=== PATIENT | female | born 1995 | race Caucasian/White ===

== ENCOUNTER → 2018-09-20 09:18 | Outpatient (CLI) | payer OTHER, SELFPAY ==
[2018-09-20 08:20] VITALS: BMI 42.7
[2018-09-20 10:47] LABS: Absolute Lymphocyte Count 2.46 X10^3/ul (0.83-4.51); Basophil# 0.04 X10^3/uL; Basophil% 0.4 % (0-1); Eosinophil# 0.11 X10^3/uL; Eosinophils% 1.1 % (0-5); Hemoglobin 14.2 g/dl (12.0-15.0); Lymphocyte # 2.46 X10^3/ul (4.0); Lymphocyte % 23.5 % (19-41); Mean Corp Hgb Conc 32.3 g/gl (32-36); Mean Corpuscular Hgb 28.1 pg (27.0-32.0); Mean Corpuscular Volume 87.1 fL (81-99); Mean Platelet Vol. 11.1 fl (6.2-12.0); Monocyte# 0.84 X10^3/uL; Neutrophil # 6.98 X10^3/uL (2.7-7.7); Neutrophil % 66.8 % (47-70); Platelet Count 262 K/mm3 (150-450); RBC Distribution Width CV 13.9 % (11.6-14.6); RBC Distribution Width SD 44.4 fl (35.1-43.9); Red Blood Count 5.05 M/mm3 (4.2-5.4); White Blood Count 10.5 K/mm3 (4.4-11.0)
[2018-09-20 10:48] LABS: POSITIVE COUNT NO; POSITIVE DIFFERENTIAL NO; POSITIVE MORPHOLOGY NO
[2018-09-20 11:53] LABS: HIV - WCH Non-Reactive (Nonreactive); Rubella IgG 12.7 IU/mL
[2018-09-20 19:01] LABS: Chlamydia Trachomatis by PCR POSITIVE (Negative)
[2018-09-20 19:02] LABS: Neisserai gonorrhoeae by PCR Negative (Negative); Probe Check PASS; Sample Adequacy Control PASS; Specimen Processing Control PASS
[2018-09-21 12:16] LABS: HEPATITIS B SURFACE AG Negative (Negative)
[2018-09-22 03:11] LABS: Rapid Plasmin Reagin (RPR) NONREACTIVE (NONREACTIVE)
[2018-09-24 09:39] LABS: HPV Reflexed? NOT INDICATED
== END ==
PROVIDERS: Family Provider Family Medicine; PCP Family Medicine; Referring Provider Obstetrics & Gynecology; Visit Provider Obstetrics & Gynecology
DX: Z34.90 Encounter for supervision of normal pregnancy, unspecified, unspecified trimester (principal); Z12.4 Encounter for screening for malignant neoplasm of cervix
CPT/HCPCS: 36415; 85025; 86592; 86703; 86762; 86850; 86900; 87086; 87088; 87186; 87340; 87491; 87591; 87624; 88175; G0145

== ENCOUNTER → 2018-11-15 09:04 | Outpatient (CLI) | payer MEDICAID, SELFPAY ==
[2018-10-20 15:33] VITALS: BMI 42.7
[2018-11-15 10:50] LABS: Glucose Challenge Gest 1H 50g 124 mg/dL (70-140)
== END ==
PROVIDERS: Family Provider Family Medicine; PCP Family Medicine; Referring Provider Obstetrics & Gynecology; Visit Provider Obstetrics & Gynecology
DX: Z34.90 Encounter for supervision of normal pregnancy, unspecified, unspecified trimester (principal)
CPT/HCPCS: 36415; 82950

== ENCOUNTER → 2018-12-13 14:07 | Outpatient (CLI) | payer OTHER, MEDICAID, SELFPAY ==
[2018-12-13 11:42] VITALS: BMI 43.2
--- NOTE | 2018-12-13 14:21 | US_ITS ---
STUDY: SECOND AND THIRD TRIMESTER OBSTETRICAL ULTRASOUND REASON FOR EXAM: Female, 23 years old. Routine survey. LMP: 07/22/2018 TECHNIQUE: Transabdominal TECHNICAL QUALITY: Adequate. PRIOR ULTRASOUND: None. FINDINGS: There is a single intrauterine fetus. The fetus is moving throughout the exam. There is demonstrated cardiac activity with a heart rate of 157 bpm. There is a normal amniotic fluid volume. The largest amniotic fluid pocket measures 4.0 cm. The placenta is posterior in location and is not low lying. There are Grade 0 placental changes. The cervix measures 3.06 cm in length. The adnexal regions are not visualized. BIOMETRY: BPD: 4.35 cm: 19 weeks, 2 days HC: 16.28 cm: 19 weeks, 1 days AC: 14.96 cm: 20 weeks, 2 days FL: 3.29 cm: 20 weeks, 2 days age by current US: 19 weeks, 6 days. LEOBARDO by current US: 05/03/2019. Estimated weight: 331 grams, +/- 48 grams, 21 %. age by prior US: 20 weeks, 4 days. LEOBARDO by prior US: 04/28/2019. Age by LMP: 20 weeks, 4 days. LEOBARDO by LMP: 04/28/2019. ANATOMY: Gender: Female Cranium: Normal lateral ventricles. Normal choroid plexus. Normal cerebellum. Normal cisterna magna. Normal face, nose and lips. Chest: Normal 4-chamber heart. Abdomen/Pelvis: Normal diaphragm. Normal stomach. Normal abdominal wall. Normal cord insertion. Normal 3 vessel cord. Normal kidneys. Normal bladder. Spine: Normal cervical spine. Normal thoracic spine. Normal lumbar spine. Normal sacrum. Extremities: Normal bilateral upper extremities. Normal bilateral lower extremities. US/OB Anatomy Scan IMPRESSION: Single live intrauterine at 19 weeks, 6 days by current ultrasound with LEOBARDO of 05/03/2019. Heart rate at 157 bpm. No suspicious sonographic findings. Normal growth noted since the previous study. Electronically Signed: Diego Chapa MD at 18:32 EDT , Service support ,
== END ==
PROVIDERS: Family Provider Family Medicine; PCP Family Medicine; Referring Provider Obstetrics & Gynecology; Visit Provider Obstetrics & Gynecology
DX: Z34.90 Encounter for supervision of normal pregnancy, unspecified, unspecified trimester (principal)
CPT/HCPCS: 76805

== ENCOUNTER → 2019-02-07 11:13 | Outpatient (CLI) | payer OTHER, MEDICAID, SELFPAY ==
[2019-02-07 10:52] VITALS: BMI 42.7
[2019-02-07 12:44] LABS: Absolute Neutrophil Count 8.8 X10^3/uL (2.0-7.7); Basophil# 0.02 X10^3/uL; Basophil% 0.2 % (0-1); Eosinophil# 0.07 X10^3/uL; Eosinophils% 0.6 % (0-5); Hematocrit 38.2 % (37-47); Hemoglobin 12.5 g/dL (12.0-15.0); Mean Corp Hgb Conc 32.7 g/dL (32-36); Mean Corpuscular Hgb 29.1 pg (27.0-32.0); Mean Corpuscular Volume 88.8 fL (81-99); Mean Platelet Vol. 10.9 fl (6.2-12.0); Monocyte# 0.61 X10^3/uL; Monocyte% 5.4 % (0-10); NRBC Flagged by Analyzer 0 % (0-5); Neutrophil # 8.84 X10^3/uL (2.7-7.7); Neutrophil % 78.2 % (47-70); Platelet Count 224 K/mm3 (150-450); RBC Distribution Width CV 13.5 % (11.6-14.6); RBC Distribution Width SD 43.8 fl (35.1-43.9); White Blood Count 11.3 K/mm3 (4.4-11.0)
[2019-02-07 12:46] LABS: Glucose Challenge Gest 1H 50g 126 mg/dL (70-140)
== END ==
PROVIDERS: Family Provider Family Medicine; PCP Family Medicine; Referring Provider Nurse Practitioner Women's Health; Visit Provider Nurse Practitioner Women's Health
DX: Z34.90 Encounter for supervision of normal pregnancy, unspecified, unspecified trimester (principal)
CPT/HCPCS: 36415; 82950; 85025; 87086; 87088

== ENCOUNTER → 2019-03-07 13:38 | Outpatient (CLI) | payer OTHER, MEDICAID, SELFPAY ==
[2019-02-21 09:34] VITALS: BMI 45.3
--- NOTE | 2019-03-07 13:40 | US_ITS ---
STUDY: SECOND AND THIRD TRIMESTER OBSTETRICAL ULTRASOUND - LIMITED REASON FOR EXAM: Female, 24 years old. Routine survey. LMP: July 22, 2018. PRIOR ULTRASOUND: Comparison is made with prior study dated December 13, 2018. TECHNIQUE: Transabdominal TECHNICAL QUALITY: Adequate. FINDINGS: There is a single intrauterine fetus. The fetus is in a cephalic presentation. There is demonstrated cardiac activity with a heart rate of 147 bpm. There is a normal amniotic fluid volume. The largest amniotic fluid pocket measures 3.9 x 4.3 cm. The amniotic fluid index (AZAEL) is 14.7 cm. The placenta is posterior in location and is not low lying. There are Grade 1 placental changes. The cervix measures 4.9 cm in length. BIOMETRY: BPD: 7.93 cm: 31 weeks, 6 days HC: 29.42 cm: 30 weeks, 4 days AC: 28.42 cm: 32 weeks, 4 days FL: 6.22 cm: 32 weeks, 2 days Age by LMP: 32 weeks, 4 days. LEOBARDO by LMP: April 28, 2019. age by prior US: 31 weeks, 6 days. LEOBARDO by prior US: May 03, 2019. age by current US: 32 weeks, 3 days. LEOBARDO by current US: April 29, 2019. Estimated weight: 1951 grams, +/- 25 grams, 32 percentile. US/OB Limited With Biometrics IMPRESSION: Single live intrauterine gestation with a mean gestational age of 31 weeks and 6 days. Measurements obtained today fall within normal expected range. Electronically Signed: Edwardo Chávez, at 13:41 EDT , Service support ,
== END ==
PROVIDERS: Family Provider Family Medicine; PCP Family Medicine; Referring Provider Obstetrics & Gynecology; Visit Provider Obstetrics & Gynecology
DX: O99.211 Obesity complicating pregnancy, first trimester (principal); Z3A.32 32 weeks gestation of pregnancy
CPT/HCPCS: 76816

== ENCOUNTER → 2019-04-04 11:30 | Outpatient (CLI) | payer OTHER, MEDICAID, SELFPAY ==
[2019-02-21 09:34] VITALS: BMI 45.3
[2019-04-04 11:04] VITALS: BMI 45.3
--- NOTE | 2019-04-04 11:33 | US_ITS ---
STUDY: SECOND AND THIRD TRIMESTER OBSTETRICAL ULTRASOUND REASON FOR EXAM: Female, 24 years old. growth LMP: TECHNIQUE: Transabdominal TECHNICAL QUALITY: Adequate. PRIOR ULTRASOUND: March 07, 2019 FINDINGS: There is a single intrauterine fetus. The fetus is in a cephalic presentation. There is demonstrated cardiac activity with a heart rate of 130 bpm. There is a normal amniotic fluid volume. The largest amniotic fluid pocket measures 3.7 cm. The amniotic fluid index (AZAEL) is 12.8 cm. The placenta is posterior and fundal There are Grade 2 placental changes. The cervix was not visualized. The bilateral adnexal regions are nonvisualized. BIOMETRY: BPD: 8.9 cm: 36 weeks, 0 days HC: 32.1 cm: 36 weeks, 2 days AC: 32.2 cm: 36 weeks, 1 days FL: 7.1 cm : 36 weeks, 2 days CI: 0.8 FL/BPD: 0.8 FL/HC: FL/AC: 0.22 HC/AC: 1.0 age by current US: 36 weeks, 2 days. LEOBARDO by current US: April 30, 2019. Estimated weight: 2856 grams, +/- 417 grams, 41 %. age by prior US: 36 weeks, 3 days. LEOBARDO by prior US: April 29, 2019. Age by LMP: 36 weeks, 4 days. LEOBARDO by LMP: April 28, 2019. ANATOMY: Not studied at this time. US/OB Limited With Biometrics IMPRESSION: Viable intrauterine gestation approximately 36-37 weeks gestational age No acute abnormality Electronically Signed: Layo Sanders MD at 21:38 EDT , Service support ,
[2019-04-04 17:22] LABS: Chlamydia Trachomatis by PCR Negative (Negative); Neisserai gonorrhoeae by PCR Negative (Negative); Probe Check PASS; Sample Adequacy Control PASS; Specimen Processing Control PASS
== END ==
PROVIDERS: Family Provider Family Medicine; PCP Family Medicine; Referring Provider Obstetrics & Gynecology; Visit Provider Obstetrics & Gynecology
DX: O99.213 Obesity complicating pregnancy, third trimester (principal); O98.313 Other infections with a predominantly sexual mode of transmission complicating pregnancy, third trimester; Z3A.36 36 weeks gestation of pregnancy
CPT/HCPCS: 76816; 87081; 87491; 87591

== ENCOUNTER 2019-04-17 13:47 | Outpatient (CLI) | payer OTHER, MEDICAID, SELFPAY ==
[2019-04-17 13:22] VITALS: BMI 49.2
[2019-04-17 14:12] LABS: ROM Internal Control Test YES-OK TO RESULT pt. (Internal QC); ROM Patient Test Negative (Negative); Record Kit Lot#, ROM+ J8255
[2019-04-17 14:38] VITALS: BMI 49.6
[2019-04-17 15:02] LABS: Protein:Creat Ratio 169 mg/g CRE (0-200)
[2019-04-17 15:10] LABS: Hematocrit 36.1 % (37-47); Hemoglobin 11.9 g/dL (12.0-15.0); Mean Corpuscular Hgb 28.7 pg (27.0-32.0); Platelet Count 226 K/mm3 (150-450); RBC Distribution Width CV 13.8 % (11.6-14.6); RBC Distribution Width SD 43.2 fl (35.1-43.9); Red Blood Count 4.15 M/mm3 (4.2-5.4); White Blood Count 12.4 K/mm3 (4.4-11.0)
[2019-04-17 15:21] LABS: International Normalized Ratio 1.1; Prothrombin Time (Protime)PT. 13.8 SECONDS (11.7-14.9)
[2019-04-17 15:22] LABS: AST(SGOT) 13 U/L (15-37); Alanine Aminotransfer ALT/SGPT 15 U/L (13-56); Creatinine, Serum 0.62 mg/dL (0.55-1.02); EST Glomerular Filtration Rate 125 mL/min (>60); Est Glom Filt Rate - Afr Amer 151 mL/min (>60); Estimated Creatinine Clearance 144.96 ml/min; Partial Thromboplast Time 26.7 Seconds (24.1-36.2); Uric Acid 4.6 mg/dL (2.6-6.0)
--- NOTE | 2019-04-18 05:30 | OB.TRI.PN ---
Progress Notes Date of Service: 04/17/19 Progress Note: Patient presents for triage evaluation secondary to elevated blood pressure in the office FHT: 130 Moderate variability reactive no decelerations category I tracing [place]: no Contractions Assessment and plan: Elevated blood pressures in office, repeat all within normal limits and negative preeclampsia panel reactive NST, reassuring maternal and status patient discharged to home to follow-up as scheduled next week reviewed preeclampsia precautions. See problem list details for additional plan information. Laboratory Studies: Laboratory Tests 04/17/19 04/17/19 04/17/19 Range/Units 14:50 14:50 14:50 WBC 12.4 H (4.4-11.0) K/mm3 RBC 4.15 L (4.2-5.4) M/mm3 Hgb 11.9 L (12.0-15.0) g/dL Hct 36.1 L (37-47) % MCV 87.0 (81-99) fL MCH 28.7 (27.0-32.0) pg MCHC 33.0 (32-36) g/dL RDW Std Deviation 43.2 (35.1-43.9) fl RDW Coeff of Luisa 13.8 (11.6-14.6) % Plt Count 226 (150-450) K/mm3 MPV 12.0 (6.2-12.0) fl PT 13.8 (11.7-14.9) SECONDS INR 1.1 APTT 26.7 (24.1-36.2) Seconds Creatinine 0.62 (0.55-1.02) mg/dL Estim Creat Clear Calc 144.96 ml/min Est GFR (MDRD) Af Amer 151 (>60) mL/min Est GFR (MDRD) Non-Af 125 (>60) mL/min Uric Acid 4.6 (2.6-6.0) mg/dL AST 13 L (15-37) U/L ALT 15 (13-56) U/L U Random Total Protein (<11.9) mg/dL Urine Creatinine (NO RANGE EST.) mg/dL Protein/Creatinin Ratio (0-200) mg/g CRE Vag Amniotic Fld Detect (Negative) 04/17/19 04/17/19 Range/Units 13:50 13:25 WBC (4.4-11.0) K/mm3 RBC (4.2-5.4) M/mm3 Hgb (12.0-15.0) g/dL Hct (37-47) % MCV (81-99) fL MCH (27.0-32.0) pg MCHC (32-36) g/dL RDW Std Deviation (35.1-43.9) fl RDW Coeff of Luisa (11.6-14.6) % Plt Count (150-450) K/mm3 MPV (6.2-12.0) fl PT (11.7-14.9) SECONDS INR APTT (24.1-36.2) Seconds Creatinine (0.55-1.02) mg/dL Estim Creat Clear Calc ml/min Est GFR (MDRD) Af Amer (>60) mL/min Est GFR (MDRD) Non-Af (>60) mL/min Uric Acid (2.6-6.0) mg/dL AST (15-37) U/L ALT (13-56) U/L U Random Total Protein 40.0 H (<11.9) mg/dL Urine Creatinine 236.00 (NO RANGE EST.) mg/dL Protein/Creatinin Ratio 169 (0-200) mg/g CRE Vag Amniotic Fld Detect Negative (Negative) - Problem List (1) Elevated blood pressure affecting in third trimester, antepartum Status: Acute Multi Select Codes - Urinary/Genital Urinary/Genital CPT Codes: 93592-39 non-stress test Interp
== END 2019-04-17 16:00 | disposition home or self-care (01) ==
LOC: LABSPEC 13:50 → WPOUT 14:23 → WP 14:27
PROVIDERS: Nurse Practitioner Women's Health; Family Provider Family Medicine; PCP Family Medicine; Referring Provider Obstetrics & Gynecology; Visit Provider Obstetrics & Gynecology
DX: O26.893 Other specified pregnancy related conditions, third trimester (principal); Z3A.00 Weeks of gestation of pregnancy not specified; R03.0 Elevated blood-pressure reading, without diagnosis of hypertension
CPT/HCPCS: 36415; 59025; 59050; 82565; 82570; 84112; 84156; 84450; 84460; 84550; 85027; 85610; 85730; 99218; G0378

== ENCOUNTER 2019-04-25 09:35 | Inpatient (IN) | payer OTHER, MEDICAID, SELFPAY ==
[2019-04-25 09:21] VITALS: BMI 49.6
[2019-04-25 10:00] VITALS: BMI 49.1
[2019-04-25 10:09] LABS: Protein, Urine (Random) 48.8 mg/dL (<11.9); Protein:Creat Ratio 400 mg/g CRE (0-200)
[2019-04-25] MEDS: Lactated Ringers 1,000 ML 50 ML IV (10:17)
[2019-04-25 10:30] LABS: Hematocrit 36.5 % (37-47); Hemoglobin 12.2 g/dL (12.0-15.0); Mean Corp Hgb Conc 33.4 g/dL (32-36); Mean Corpuscular Hgb 29.2 pg (27.0-32.0); Mean Corpuscular Volume 87.3 fL (81-99); Mean Platelet Vol. 11.5 fl (6.2-12.0); POSITIVE MORPHOLOGY YES; Platelet Count 207 K/mm3 (150-450); RBC Distribution Width CV 13.9 % (11.6-14.6); RBC Distribution Width SD 44.5 fl (35.1-43.9); Red Blood Count 4.18 M/mm3 (4.2-5.4); White Blood Count 10.3 K/mm3 (4.4-11.0)
[2019-04-25 10:32] LABS: Scan Indicated on CBC? Y/N YES- FLAGS NOTED
[2019-04-25 10:45] LABS: AST(SGOT) 12 U/L (15-37); Alanine Aminotransfer ALT/SGPT 12 U/L (13-56); Creatinine, Serum 0.65 mg/dL (0.55-1.02); EST Glomerular Filtration Rate 118 mL/min (>60); Est Glom Filt Rate - Afr Amer 143 mL/min (>60); Estimated Creatinine Clearance 138.27 ml/min; Uric Acid 4.7 mg/dL (2.6-6.0)
[2019-04-25 10:49] LABS: International Normalized Ratio 1.1; Prothrombin Time (Protime)PT. 13.8 SECONDS (11.7-14.9)
[2019-04-25 10:50] LABS: Partial Thromboplast Time 27.1 Seconds (24.1-36.2)
[2019-04-25] MEDS: Oxytocin 30 units/NS 500 ml 30 UNITS/500 ML IV.SOLN IV (11:33)
[2019-04-25] MEDS: 0.9% Normal Saline 100 ML IV.SOLN. IY (13:19)
[2019-04-25] MEDS: Ondansetron 4 MG/2 ML Vial IV (17:01)
[2019-04-25] MEDS: Nalbuphine 10 MG/ML Ampul IV (17:57)
--- NOTE | 2019-04-25 22:01 | HP.PCM_ITS ---
- Problem List (1) Preeclampsia Status: Acute (2) Chlamydia infection affecting Status: Acute Qualifiers: Comment: Tx 09/21/18; Rpt 4 week/neg; 36wk neg. (3) Obesity affecting Status: Acute Qualifiers: Comment: 1 tm glucola, discuss healthy weight gain, nutrition consult (4) Status: Acute Qualifiers: Comment: genetic, NTD, and carrier screening declined. nl anatomy scan. (5) Supervision of normal Status: Acute Qualifiers: Comment: PRR Leobardo 04/28/19 girl Xara boyfriend Olu (Angel) (6) UTI in Status: Acute Qualifiers: Comment: 09/21/18 [place] ampicillin. Rpt culture next visit History and Physical Date of Admission: 04/25/19 Intake Vital Signs 04/25/19 Body Mass Index (BMI) 49.6 04/25/19 Height 5 ft 9 in 04/25/19 Weight: 335 lb 04/25/19 Body Mass Index (BMI) 49.4 04/25/19 Blood Pressure 154/92 H Intake Visit Reasons: 39 WEEK OB/NST Chief Complaint: est ob,nst Air Quality Consultant Required: No Is patient in pain?: No Allergies No Known Allergies Allergy (Verified 04/25/19 09:08) Medications vitamin#30 30 mg iron-10 mg iron-folic acid 1 mg-omg3 capsule cap PO cap 09/20/18 [History Confirmed 04/25/19] Last Menstral Period: 07/22/18 Zika: Zika virus screening: Negative : No PFSH PFSH Family History Mother Hypertension Heart disease Grandmother Cancer Lymphnode Sister Lupus Rheumatoid arthritis Brother Marfan syndrome Social History (Updated 04/25/19 @ 09:28 by Dimple Trinidad MD) Smoking Status: Never smoker alcohol intake: never substance use type: does not use caffeine: Yes what type of physical activity do you participate in: walking seatbelt use: always do you feel safe at home: Yes additional social history: Single- works at [employer] Pregancy History 1 Elective abortions Hx Para Spontaneous abortions Hx # Term Pregnancies Ectopic pregnancies Hx # Pregnancies Multiple births # of living children HPI 39 WEEK OB/NST: Details: YAZ SAAB is a 24 year old who presents for routine OB visit- she has elevated bps and 2 plus protein so is being sent down to l and d for IOL with pitocin and baker bulb. plan CMP. no LIM BV good fm no regular ctx no vb or lof. OB Visit LEOBARDO Calculator Estimated Delivery Date Method Current WG Current Estimate 04/28/19 LMP (Certain) 39w 4d Expected Delivery Route/Plan Specific Issue/Plans flu vaccine: given tdap vaccine: given rhogam: na LARC form signed: declines labor support person: Olu pain management: epidural if needed cut cord/dad catch: yes : yes PP control planned: [] discussed possible routes of delivery and associated risks: [] special requests: [] Initial Weight: 290 lb Date EGA Weight BP Urine Prot Glucose FHR FuHt Pres Mov CTX Dilation Effaced St Visit Note 10/20/18 12w 6d 294 lb (+4 lb) 140/64 Negative Negative 160 170 no vb cramping 11/15/18 16w 4d 292 lb 8 oz (+2 lb 8 oz) 126/68 Negative Negative 148 Doing well NO Vb, LOF 12/13/18 20w 4d 293 lb (+3 lb) 142/90 Trace Negative 145 no vb lof good fm 01/10/19 24w 4d 302 lb (+12 lb) 116/66 Negative Negative 150 no vb lof good fm no regular ctx 02/07/19 28w 4d 303 lb (+13 lb) 124/70 Negative Negative 138 28 No VB, LOF. Doing well 02/21/19 30w 4d 307 lb (+17 lb) 112/64 Negative Negative 135 30 Active absent no vb lof good fm no regular ctx 03/07/19 32w 4d 307 lb (+17 lb) 120/60 140 33 Active absent NO VB, LOF. NST 03/14/19 33w 4d 309 lb 4 oz (+19 lb 4 oz) 110/62 Negative Negative 145 35 Active absent no vb lof 03/21/19 34w 4d 317 lb (+27 lb) 132/78 138 35 Active absent NST today. 03/28/19 35w 4d 321 lb (+31 lb) 321 lb (+31 lb) 130/76 Trace Negative 135 36 Active absent No VB, LOF. Good FM. NST 04/04/19 36w 4d 329 lb 4 oz (+39 lb 4 oz) 128/68 Negative Negative 140 37 Active absent no vb lof gbs today, co usha edema 04/11/19 37w 4d 334 lb (+44 lb) 130/86 Negative Negative 146 38 Active absent 1.40 -4 No CTX, LOF, VB 04/17/19 38w 3d 333 lb 6 oz (+43 lb 6 oz) 140/84 Trace Negative 158 39 Cephalic Active absent 1.40 -3 Work in for questionable ROM 04/25/19 39w 4d 335 lb (+45 lb) 154/92 150 Visit Notes Visit Date: 04/25/19 ??No visit notes to display Visit Date: 04/17/19 ??Work in for questionable ROM ??Bárbara Sofia NP-C on 04/17/19 Visit Date: 04/11/19 ??No CTX, LOF, VB ??RACHEL Barrios on 04/11/19 Visit Date: 04/04/19 ??no vb lof gbs today, co usha edema ??Dimple Trinidad MD on 04/04/19 Visit Date: 03/28/19 ??No VB, LOF. Good FM. NST ??RACHEL Barrios on 03/28/19 Visit Date: 03/21/19 ??NST today. ??RACHEL Barrios on 03/21/19 Visit Date: 03/14/19 ??no vb lof ??Dimple Trinidad MD on 03/18/19 Visit Date: 03/07/19 ??NO VB, LOF. NST ??RACHEL Barrios on 03/07/19 Visit Date: 02/21/19 ??no vb lof good fm no regular ctx ??Dimple Trinidad MD on 02/21/19 Visit Date: 02/07/19 ??No VB, LOF. Doing well ??RACHEL Barrios on 02/07/19 Visit Date: 01/10/19 ??no vb lof good fm no regular ctx ??Dimple Trinidad MD on 01/10/19 Visit Date: 12/13/18 ??no vb lof good fm ??Dimple Trinidad MD on 12/15/18 Visit Date: 11/15/18 ??Doing well NO Vb, LOF ??RACHEL Barrios on 11/15/18 Visit Date: 10/20/18 ??no vb cramping ??Dimple Trinidad MD on 10/20/18 ACOG First Trimester First Trimester: Desire for , Alcohol, Tobacco Cessation, Illicit/Recreational Drug/Substance Use, Intimate Partner Violence, Barriers to care, Unstable Housing, Communication Barriers, Environmental/Work Hazards, Anticipated Course of Care, Toxoplasmosis Precations, Use of Any medications, Sexual activity, Exercise, Dental Care, Sauna/Hot tub use, Seat Belt use, Childbirth classes/Hospital facilities, , Travel, In dications for US and Screening for Aneuploidy Second Trimester Second Trimester: Signs and Symptoms of Labor, Selecting a care provider, Reproductive Life Planning, Care Planning, Tobacco Cessation, Depression/Anxiety and Intimate Partner Violence Third Trimester Third Trimester: Pain Management Plans, Labor support person(s), Immediate Larc, Movement Monitoring and Feeding Yes ; discussed Trial of Labor after Counseling or discussed Circumcision preference Diagnostics Diagnostics Diagnostics Glucose 1 Hr 50 gm 126 mg/dL (70-140) 02/07/19 Hgb 11.9 g/dL (12.0-15.0) L 04/17/19 Hct 36.1 % (37-47) L 04/17/19 Details: HIV: Urine Culture: Sequential Screen: NIPT Screen: ROS Const Reports system reviewed and no additional complaints, except as docu Card Reports system reviewed and no additional complaints, except as docu Resp Reports system reviewed and no additional complaints, except as docu GI Reports system reviewed and no additional complaints, except as docu, Reports nausea Reports system reviewed and no additional complaints, except as docu Musc Reports system reviewed and no additional complaints, except as docu Exam Const General: cooperative, healthy appearing, comfortable, anxious HENMT Head: normal to inspection Nose: external nose normal Face and sinus: normal facial exam Neck Neck: normal visual inspection, full ROM, no lymphadenopathy Thyroid: thyroid normal Chest Chest palpation & inspection: normal inspection of the chest Resp Effort & Inspection: normal respiratory effort GI Inspection: normal to inspection Palpation: soft, other (gravid uterus) Other: vertex and appropriate size for gestational age Other: Cervical Exam: Extrem General: pedal edema Assessment & Plan Problems 1. Elevated blood pressure affecting in third trimester, antepartum O16.3 2. Urinary tract infection in mother during third trimester of O23.43 3. Obesity affecting in third trimester O99.213 4. 39 weeks gestation of Z3A.39 5. Encounter for supervision of normal first in third trimester Z34.03 6. Chlamydia infection affecting in second trimester O98.812 Plan Patient presents IOL, plan management for , pitocin/AROM after baker bulb. Pain management: minimal intervention desired. GBS negative. Management of any complications: check cmp- no magnesium sulfat unless severe features develop I have reviewed the [facility] and made any clinically relevant updates. Orders Orders: OB NST Today O99.210 POC Urinalysis 2 Dip (Clinic) Today Protein+Creatinine Ratio,Urine Today O12.10, O16.3 Coding Level of Care Code OB Routine Diagnoses Elevated blood pressure affecting in third trimester, antepartum O16.3 Urinary tract infection in mother during third trimester of O23.43 ??Trimester: third trimester Obesity affecting in third trimester O99.213 ??Trimester: third trimester 39 weeks gestation of Z3A.39 ??Weeks of gestation: 39 weeks Encounter for supervision of normal first in third trimester Z34.03 ??Normal : normal first ??Trimester: third trimester Chlamydia infection affecting in second trimester O98.812 ??Trimester: second trimester
--- NOTE | 2019-04-25 22:02 | PN_ITS ---
Progress Note FHT: 130 Moderate variability reactive no decelerations category I tracing [place]: regular Contractions 4 cm -3 wait for AROM pit per protocol, bps nl to mildlly elevated
[2019-04-26] VITALS (10 sets, daily range): BP systolic 121–150; BP diastolic 61–82; PULSE 112–124; RESP 18–20; TEMP 36.8–38.4; O2SAT 95–96
[2019-04-26] MEDS: Lactated Ringers 1,000 ML 50 ML IV (02:14)
[2019-04-26] MEDS: Nalbuphine 10 MG/ML Ampul IV ×2 (04:10→08:33)
[2019-04-26] MEDS: Lactated Ringers 500 ML 999 ML IV (10:07)
[2019-04-26] MEDS: Ondansetron 4 MG/2 ML Vial IV (10:30)
[2019-04-26] MEDS: fentaNYL-bupivacaine (epidural) 100 ML BAG EPIDURAL ×2 (10:53→16:02)
--- NOTE | 2019-04-26 13:06 | PCM.PN.BLA ---
Progress Note FHT: 130 Moderate variability reactive no decelerations category I tracing [place]: regular Contractions still 5 cm but some subtle cervical cahnge. ROM since 7 am- recommend pitocin washout and plan restarting. s/p epidural. bps stable and nl
[2019-04-26] MEDS: Lactated Ringers 1,000 ML 200 ML IV (13:33)
[2019-04-26] MEDS: Sodium Citrate/Citric Acid 30 ML UDC PO (17:43)
--- NOTE | 2019-04-26 17:55 | PCM.PN.BLA ---
Progress Note no cervical change in 10 hours still 5 cm. s/p 2 pitocin washouts. pitocin at 20 mU. discussed with patient recommend proceeding with primary .
--- NOTE | 2019-04-26 18:26 | PLAC_PTH ---
PATIENT: YAZ SAAB LOC: WP U#:[id number] AGE/SX: 24/F ROOM: WP007 RE04/25/[address]: Dr. Dimple Trinidad MD : 1995 BED: 1 DIS: 04/28/2019 SPEC #: [id number] RECD: 04/27/19 10:54 STATUS: MAXINE REQ #: [id number] PAL: 04/26/19 18:[address]: Dimple Trinidad DEPT: SURGICAL PATHOLOGY RECD BY: Refugio Lopez ENTERED: 04/27/19 10:54 SP TYPE: PLACENTA OTHR DR: Dr. Carlton Melton MD Tissues: Placenta, NOS Procedures: Surgery Specimen Level V HEADER OPERATION: Primary section PRE-OP DIAGNOSIS: Labor and delivery TISSUE SUBMITTED: Placenta MICROSCOPIC DIAGNOSIS Max placenta (628 gm): Umbilical cord - trivascular with acute funisitis. Placental membranes - acute chorioamnionitis and acute deciduitis. Placental disc - foci of organizing intraparenchymal hemorrhage, intervillous congestion, intravillous congestion and mild Andrea-Byron change. AM:courtney 04/30/19 MICROSCOPIC DESCRIPTION Slides are reviewed. GROSS DESCRIPTION SPECIMEN: PLACENTA / CLINICAL INFORMATION: A. Weight: 3.088 kg B. Gestational Age: 39 weeks C. Sex: Female PLACENTAL WEIGHT (POST FIXATION): 628 gm PLACENTAL DIMENSIONS: 17 x 17 x 3 cm PLACENTAL SHAPE: Usual ovoid PLACENTAL WEIGHT FOR GESTATIONAL AGE: over 99th percentile MEMBRANES - Present A. Insertion: Marginal B. Site of rupture from edge: At edge of placental disc C. Color of membrane: Martínez-vail D. Abnormalities: None UMBILICAL CORD - Present A. Color: Martínez-vail B. Insertion: Slightly eccentric C. Length: 28 cm D. Diameter: 1.2 cm E. Number of vessels: Three F. Abnormalities: None PLACENTAL DISC - Present A. Color of surface: Martínez-vail B. surface abnormalities: None C. Maternal cotyledons: Intact with minimal tears D. Attached retro placental clot: No clot E. Cut surface: Dark red and spongy F. Lesions: Two martínez-white lesion 1.5 x 1 x 1 cm and 2.5 x 2.5 x 1.3 cm G. Separate clot: Blood clot in container measures 6 x 3.5 x 1 cm SECTIONS SUBMITTED: 1. Umbilical cord ( end inked) 2. Membrane roll 3. Placental disc, and maternal surfaces, lesion 4. Placental disc, and maternal surfaces, lesion 5. Placental disc, and maternal surfaces AM:courtney 04/27/19 TC:2 CPT: 35532
[2019-04-26] MEDS: Oxytocin 30 units/NS 500 ml 30 UNITS/500 ML IV.SOLN 167 UNITS IV (19:10)
--- NOTE | 2019-04-26 19:19 | PCM.OPRPT ---
Problem List (1) Preeclampsia Status: Acute (2) Chlamydia infection affecting Status: Acute Qualifiers: Comment: Tx 09/21/18; Rpt 4 week/neg; 36wk neg. (3) Obesity affecting Status: Acute Qualifiers: Comment: 1 tm glucola, discuss healthy weight gain, nutrition consult (4) Status: Acute Qualifiers: Comment: genetic, NTD, and carrier screening declined. nl anatomy scan. (5) Supervision of normal Status: Acute Qualifiers: Comment: PRR Leobardo 04/28/19 girl Dionisio boyfrienalan Raines (Angel) (6) UTI in Status: Acute Qualifiers: Comment: 09/21/18 [place] ampicillin. Rpt culture next visit Delivery Classification: JAMAL Final LEOBARDO: 04/28/19 Gestational age: 39 Weeks and 5 Days public housing interviewer: Yvonne Mcnally Type of Anesthesia:: Spinal Special Medications: none Implants Used: none Date of Procedure: 04/26/19 Pre-Operative Diagnosis: arrest of dilation Post-Operative Diagnosis: arrest of dilation Indications for : Failure to Progress Description of Procedure: Patient presented for induction of labor secondary to preeclampsia. Patient was started on Pitocin and Robertson bulb and after Robertson bulb came out expectant management was employed with increase in the Pitocin until it was safe to rupture membranes. Membranes were ruptured and patient may change to 5 cm. After 10 hours and to Pitocin washouts the patient was still 5 cm dilated with an IUPC showing adequate contractions at times. Discussed with the patient in the decision for a primary was made. The patient was placed in the dorsal supine position with leftward tilt. Patient was prepped and draped in the normal sterile fashion. Pfannenstiel skin incision was made with the scalpel and carried through to the underlying layer of fascia with the scalpel. Fascia was nicked in the midline and the incision extended laterally. The rectus bellies were dissected off superiorly and inferiorly with out complication both sharply and bluntly. The peritoneum was entered digitally. The incision was stretched and a low transverse uterine incision was made with the scalpel. The 's head was delivered atraumatically followed by the anterior and posterior shoulders without complication the rest of the infant delivered. There was a double nuchal cord that was very tight and a double leg cord was noted. The cord was clamped and cut and the infant was handed off to awaiting nurse. The placenta was delivered spontaneously immediately following and was noted to be intact and have a three-vessel cord. The uterus was exteriorized cleared of all clots and debris, and the incision was closed in a double layer closure using #1 Monocryl. The ovaries and fallopian tubes were noted to be within normal limits. The uterus was returned to the maternal abdomen and gutters were cleared of all clots and debris. The peritoneum was closed with 3-0 Monocryl in a running fashion incorporating the inferior rectus edge of the muscle also. Gloves were changed prior to fascial closure. Fascia was closed with 0 PDS in a running fashion. Subcutaneous tissue was copiously irrigated and the skin was closed with 3-0 Monocryl in a subcuticular fashion. Mepilex dressing was applied without complication. Patient was taken to recovery in stable condition. Amniotic Membrane Rupture Type: Artificial Amniotic Fluid Description: Clear Placenta Disposition: [facility] Specimen(s) sent to pathology: none Drain: Robertson to straight drain Fluids Replaced: crystalloid Cord Entanglement: Around neck x 2, loose Nuchal Cord Compression: With compression Cord Vessel Description: 3 Vessels Esitmated Blood Loss (ml): 800 Gender: Female Delayed cord clamping: No Antibiotic Given: Ancef 3 grams IV x1, Zithromax 500 mg/5 mL X1 Pt instructed on risks of surgery: Bleeding, Anesthesia Risks, Infection, Injury to surrounding structure(s) including bowel and bladder Complications: None - Admit VTE Documentation VTE Present on Admission: No VTE Mechan Device Prophylaxis: SCD's Multi Select Codes - Urinary/Genital Urinary/Genital CPT Codes: 65469 delivery+ Care([facility])
--- NOTE | 2019-04-26 21:52 | NURSING ---
@ 6833 epidural catheter removed, blue tip intact
[2019-04-26] MEDS: Lactated Ringers 1,000 ML 100 ML IV (22:15)
[2019-04-27] VITALS (14 sets, daily range): BP systolic 116–139; BP diastolic 65–88; PULSE 88–113; RESP 16–19; TEMP 36.7–36.9; O2SAT 91–98
[2019-04-27] MEDS: 0.9% Saline Lock 10 ML Syringe IV
[2019-04-27] MEDS: Lactated Ringers 500 ML 999 ML IV (03:35)
[2019-04-27 03:48] LABS: Hematocrit 32.9 % (37-47); Hemoglobin 10.8 g/dL (12.0-15.0); Mean Corp Hgb Conc 32.8 g/dL (32-36); Mean Corpuscular Hgb 28.9 pg (27.0-32.0); Mean Platelet Vol. 11.7 fl (6.2-12.0); Platelet Count 198 K/mm3 (150-450); RBC Distribution Width CV 14.1 % (11.6-14.6); RBC Distribution Width SD 44.4 fl (35.1-43.9); Red Blood Count 3.74 M/mm3 (4.2-5.4); White Blood Count 26.6 K/mm3 (4.4-11.0)
[2019-04-27] MEDS: Lactated Ringers 1,000 ML 999 ML IV (06:40)
[2019-04-27] MEDS: Lactated Ringers 1,000 ML 100 ML IV (09:32)
--- NOTE | 2019-04-27 09:42 | PCM.PN.OB ---
Patient Problems: Active and Suspected Problems (Last Reviewed 04/25/19 @ 09:08 by Jane Hunt) Preeclampsia (Acute) Subjective: doing well no complaints pain controlled no CP SOB N V ambulating well tolerating po lochia moderate, going well - Physical Exam General: Alert, Oriented x3 Vital Signs Temp Pulse Resp BP Pulse Ox 98.0 F 109 H 18 116/74 97 04/27/19 03:10 04/27/19 06:10 04/27/19 06:10 04/27/19 03:10 04/27/19 06:10 Oxygen Delivery Method Room Air Weight: 332 lb 14.368 oz Body Mass Index (BMI) 49.1 Intake and Output for Last 24 Hours 04/25/19 04/26/19 04/27/19 23:59 23:59 23:59 Intake Total 372.34 / 372.34 5749.36 / 5749.36 3206.67 / 3206.67 Output Total 400 / 400 1100 / 1100 150 / 150 Balance -27.66 / -27.66 4649.36 / 4649.36 3056.67 / 3056.67 Laboratory Tests Past 24 Hrs 04/27/19 03:40 WBC 26.6 H RBC 3.74 L Hgb 10.8 L Hct 32.9 L MCV 88.0 MCH 28.9 MCHC 32.8 RDW Std Deviation 44.4 H RDW Coeff of Luisa 14.1 Plt Count 198 MPV 11.7 Medical Necessity - Tobacco Use Smoking Status: Never smoker Assessment/Plan All Active Problems (Last Reviewed 04/25/19 @ 09:08 by Jane Hunt) Elevated blood pressure affecting in third trimester, antepartum (Acute) Preeclampsia (Acute) UTI in (Acute) Chlamydia infection affecting (Acute) Obesity affecting (Acute) (Acute) Supervision of normal (Acute) s/p LTCS PPD # 1 1. routine post care 2. breast feeding- support given 3. rh positive 4. rubella immune
--- NOTE | 2019-04-27 09:53 | NURSING ---
left nipple inverted
--- NOTE | 2019-04-27 11:01 | NURSING ---
patient observed sleeping, breathing regularly, upon being woken up O2 sats increased to 98, family at bedside
[2019-04-27] MEDS: Ketorolac 30 MG/ML Syringe IV ×3 (13:51→18:30)
--- NOTE | 2019-04-27 21:15 | NURSING ---
Patient denies shortness of breath. Bleeding WNL.
[2019-04-28] MEDS: Ketorolac 30 MG/ML Syringe IV ×3 (00:11→11:59)
[2019-04-28] MEDS: 0.9% Saline Lock 10 ML Syringe IV ×2 (00:11→06:01)
[2019-04-28 01:40] VITALS: BP 128/75; PULSE 116; RESP 18; TEMP 36.7; O2SAT 96
--- NOTE | 2019-04-28 01:41 | NURSING ---
Patient denies shortness of breath. Bleeding WNL.
[2019-04-28 09:00] VITALS: BP 136/85; PULSE 96; RESP 16; TEMP 36.4; O2SAT 98
--- NOTE | 2019-04-28 09:10 | PCM.PN.OB ---
Patient Problems: Active and Suspected Problems (Last Reviewed 04/25/19 @ 09:08 by Jane Hunt) Preeclampsia (Acute) Subjective: doing well no complaints pain controlled no CP SOB N V ambulating well tolerating po lochia moderate, going well - Physical Exam General: Alert, Oriented x3 Vital Signs Temp Pulse Resp BP Pulse Ox 98.1 F 116 H 18 128/75 H 96 04/28/19 01:40 04/28/19 01:40 04/28/19 01:40 04/28/19 01:40 04/28/19 01:40 Oxygen Delivery Method Room Air Weight: 332 lb 14.368 oz Body Mass Index (BMI) 49.1 Intake and Output for Last 24 Hours 04/26/19 04/27/19 04/28/19 23:59 23:59 23:59 Intake Total 5749.36 / 5749.36 3553.34 / 3553.34 Output Total 1100 / 1100 1750 / 1750 Balance 4649.36 / 4649.36 1803.34 / 1803.34 Medical Necessity - Tobacco Use Smoking Status: Never smoker Assessment/Plan All Active Problems (Last Reviewed 04/25/19 @ 09:08 by Jane Hunt) Elevated blood pressure affecting in third trimester, antepartum (Acute) Preeclampsia (Acute) UTI in (Acute) Chlamydia infection affecting (Acute) Obesity affecting (Acute) (Acute) Supervision of normal (Acute) s/p LTCS PPD # 2 1. routine post care 2. breast feeding- support given 3. rh positive 4. rubella immune
--- NOTE | 2019-04-28 09:12 | DCINST_ITS ---
Discharge Diet: No Restrictions Discharge Activity: May Not Drive - for 2 weeks, May not drive while taking narcotic pain medications., May Shower, May Take a Tub Bath - in 7 days May resume sexual activity in: 4-6 weeks Lifting Restrictions: 20 pounds Additional Activity Instructions:: Nothing in the vagina for 4-6 weeks. You may return to work/school in 6 weeks. Call your doctor if your incision/area has: Continuous Slow Oozing, Sudden Increased Bleeding, Increased Pain/ Swelling, Increased Redness, Foul Smelling Discharge Call your doctor if you observe: Fever of 101 or Higher, Using more than one pad per hour - for 2 hours Suture Line Care: Avoid Pulling/Pushing, Avoid Pinching/Bending Cleanse incision/area with: Keep Dressing Clean & Dry Additional Instructions: If you experience any of the following, contact your healthcare provider. * Bleeding that soaks a pad every hour for 2 hours * Fever 100.4 or higher * Unrelieved incision or abdominal pain * Swelling, redness, discharge or bleeding from your incision or episiotomy site * Your incision begins to separate * Problems urinating (including inability to urinate or burning while urinating). * Visual changes * Severe headache * Flu-like symptoms * Pain or redness in one of both of your breasts * Pain, warmth, tenderness or swelling in your legs, especially the calf area * Frequent nausea and vomiting * Symptoms of depression or anxiety If you experience any of the following, call 911 or go to the nearest Emergency Room. * Chest pain * Problems breathing * Seizure activity * Partial or complete paralysis of a body part, slurred speech, weakness or drooping of the face, or a sudden inability to walk or hold your balance Allergies/Adverse Reactions: Allergies No Known Allergies Allergy (Verified 04/25/19 09:57) Medications to take at Discharge Pnv No.103/Folic/Om3s/Fish Oil [ Gummies] 2 ea PO DAILY 04/25/19 Naproxen [Naprosyn] 250 - 500 mg PO Q8H PRN PRN #30 tab 04/28/19 Oxycodone HCl/Acetaminophen [Percocet 5-325] 1 - 2 tablet PO Q4H PRN PRN 7 Days #28 tablet 04/28/19 The following prescriptions were given: Naproxen [Naprosyn] 250 - 500 mg PO Q8H PRN PRN #30 tab PRN Reason: MILD PAIN Transmission Status: Pending to [facility] Oxycodone HCl/Acetaminophen [Percocet 5-325] 1 - 2 tablet PO Q4H PRN PRN 7 Days #28 tablet PRN Reason: Moderate-Severe pain Transmission Status: Sent to [facility] Follow-Up: Call to make an appointment with your doctor for an incision check in 1-2 weeks. You will also need a 6 week post- follow up appointment. Test results from this visit will be discussed in further detail at your follow- up appointment, if applicable. Please Follow Up With: Dimple Trinidad MD - Call to make an appointment for an incision check in 1-2 [phone] When: You will need a post- check in 6 weeks. Primary Care Physician: Carlton Melton [Primary Care Provider] -
[2019-04-28 12:00] VITALS: BP 136/84; PULSE 92; RESP 16; TEMP 36.5; O2SAT 100
[2019-04-30 15:01] LABS: Pathology Specimen OB SEE PATHOLOGY REPORT
--- NOTE | 2019-05-01 17:55 | PCM.DC.SUM ---
Discharge Date and Diagnosis Date of Admission: 04/25/19 Date of Discharge: 04/28/19 Hospital Course and Treatment Consultations 04/25/19 10:02 Consult: Anesthesia Routine Comment: Reason For Exam: Labor Operations: - - ltcs Summary of Care Provided: The patient is a 24 year old F prsents for iol secondary to preeclampsia. she failed to progress and had an arrest of dilation at 8 cm and patient underwent a section and had a routine recovery with a return of bowel and bladder function, was ambulating, voiding, and tolerating po, and was stable for discharge to home on POD 2. - Physical Exam Vital Signs Temp Pulse Resp BP Pulse Ox 97.7 F L 92 16 136/84 H 100 04/28/19 12:00 04/28/19 12:00 04/28/19 12:00 04/28/19 12:00 04/28/19 12:00 Oxygen Delivery Method Room Air Weight: 332 lb 14.368 oz Body Mass Index (BMI) 49.1 Discharge Diet: No Restrictions Discharge Activity: May Not Drive - for 2 weeks, May not drive while taking narcotic pain medications., May Shower, May Take a Tub Bath - in 7 days May resume sexual activity in: 4-6 weeks Additional Activity Instructions:: Nothing in the vagina for 4-6 weeks. You may return to work/school in 6 weeks. Call your doctor if your incision/area has: Continuous Slow Oozing, Sudden Increased Bleeding, Increased Pain/ Swelling, Increased Redness, Foul Smelling Discharge Call your doctor if you observe: Fever of 101 or Higher, Using more than one pad per hour - for 2 hours Suture Line Care: Avoid Pulling/Pushing, Avoid Pinching/Bending Cleanse incision/area with: Keep Dressing Clean & Dry Home Medications: Medications to take at Discharge Pnv No.103/Folic/Om3s/Fish Oil [ Gummies] 2 ea PO DAILY 04/25/19 Naproxen [Naprosyn] 250 - 500 mg PO Q8H PRN PRN #30 tab 04/28/19 Oxycodone HCl/Acetaminophen [Percocet 5-325] 1 - 2 tab PO Q4H PRN PRN 7 Days #28 tab 04/28/19 Following Prescrptions Were Given to Patient: Naproxen [Naprosyn] 250 - 500 mg PO Q8H PRN PRN #30 tab PRN Reason: MILD PAIN Transmission Status: Received by [facility] Oxycodone HCl/Acetaminophen [Percocet 5-325] 1 - 2 tab PO Q4H PRN PRN 7 Days #28 tab PRN Reason: Moderate-Severe pain Transmission Status: Received by [facility] Primary Care Physician: Carlton Melton [Primary Care Provider] - Please Follow Up With: Dimple Trinidad MD When: You will need a post- check in 6 weeks. Please Follow Up With: Dimple Trinidad MD When: Office appointment in 2 weeks for incision check. Medical Necessity - Tobacco Use Smoking Status: Never smoker Meaningful Use Info Meaningful Use Diagnoses (Choose all that apply): None applicable
== END 2019-04-28 15:00 | disposition home or self-care (01) | DRG 788 ==
PROVIDERS: Admitting Provider Obstetrics & Gynecology; Family Provider Family Medicine; PCP Family Medicine; Referring Provider Obstetrics & Gynecology; Visit Provider Obstetrics & Gynecology
DX: O14.94 Unspecified pre-eclampsia, complicating childbirth (principal); R03.0 Elevated blood-pressure reading, without diagnosis of hypertension; O62.0 Primary inadequate contractions; O69.1XX0 Labor and delivery complicated by cord around neck, with compression, not applicable or unspecified; O99.214 Obesity complicating childbirth; E66.9 Obesity, unspecified; Z3A.39 39 weeks gestation of pregnancy; Z37.0 Single live birth
CPT/HCPCS: 59025; 59050; 82565; 82570; 84156; 84450; 84460; 84550; 85007; 85027; 85610; 85730; 86850; 86900; 86901; 88307; 99218; J7120; A4216; G0378; J2405

== ENCOUNTER → 2020-09-15 12:52 | Outpatient (CLI) | payer OTHER, MEDICAID, SELFPAY ==
[2019-06-13 09:22] VITALS: BMI 43.3
[2020-09-15 13:37] LABS: hCG Titer Quant., Serum 19 mIU/mL (1-3)
== END ==
PROVIDERS: PCP Family Medicine; Referring Provider Obstetrics & Gynecology; Visit Provider Obstetrics & Gynecology
DX: O20.0 Threatened abortion (principal); Z3A.00 Weeks of gestation of pregnancy not specified
CPT/HCPCS: 36415; 84702

== ENCOUNTER → 2020-09-17 08:47 | Outpatient (CLI) | payer OTHER, MEDICAID, SELFPAY ==
[2019-06-13 09:22] VITALS: BMI 43.3
[2020-09-17 11:17] LABS: hCG Titer Quant., Serum 3 mIU/mL (1-3)
== END ==
PROVIDERS: PCP Family Medicine; Referring Provider Obstetrics & Gynecology; Visit Provider Obstetrics & Gynecology
DX: O20.0 Threatened abortion (principal); Z3A.00 Weeks of gestation of pregnancy not specified
CPT/HCPCS: 36415; 84702

== ENCOUNTER → 2021-01-30 11:13 | Outpatient (CLI) | payer OTHER, MEDICAID, SELFPAY ==
[2020-10-03 10:07] VITALS: BMI 53.7
[2021-01-30 11:51] LABS: Absolute Lymphocyte Count 2.91 X10^3/uL (0.83-4.51); Absolute Neutrophil Count 6.3 X10^3/uL (2.0-7.7); Basophil# 0.05 X10^3/uL; Basophil% 0.5 % (0-1); Eosinophil# 0.13 X10^3/uL; Eosinophils% 1.3 % (0-5); Hematocrit 44.3 % (37-47); Hemoglobin 14.3 g/dL (12.0-15.0); Lymphocyte # 2.91 X10^3/ul (0.83-4.51); Lymphocyte % 28.4 % (19-41); Mean Corp Hgb Conc 32.3 g/dL (32-36); Mean Corpuscular Hgb 27.1 pg (27.0-32.0); Mean Corpuscular Volume 83.9 fL (81-99); Mean Platelet Vol. 10.6 fl (6.2-12.0); Monocyte# 0.86 X10^3/uL; Monocyte% 8.4 % (0-10); NRBC Flagged by Analyzer 0 % (0-5); Neutrophil # 6.28 X10^3/uL (2.7-7.7); Neutrophil % 61.1 % (47-70); Platelet Count 317 K/mm3 (150-450); RBC Distribution Width CV 14.1 % (11.6-14.6); RBC Distribution Width SD 43.2 fl (35.1-43.9); Red Blood Count 5.28 M/mm3 (4.2-5.4); White Blood Count 10.3 K/mm3 (4.4-11.0)
[2021-01-30 12:36] LABS: hCG Titer Quant., Serum 2636 mIU/mL (1-3)
[2021-01-30 12:55] LABS: HIV - WCH Non-Reactive (Nonreactive); Hepatitis B Surface Antigen Non-Reactive (Nonreactive); Hepatitis C Antibody Non-Reactive (Nonreactive); Rubella IgG Equiv (Nonreactive); Syphilis Antibodies Non-reactive
[2021-02-02 20:09] LABS: Chlamydia By Nucleic Acid AMP Negative (Negative)
[2021-02-02 20:21] LABS: Gonococcus By Nucleic Acid AMP Negative (Negative)
[2021-02-05 12:43] LABS: HPV Reflexed? NOT INDICATED
== END ==
PROVIDERS: PCP Family Medicine; Visit Provider Obstetrics & Gynecology
DX: Z34.81 Encounter for supervision of other normal pregnancy, first trimester (principal)
CPT/HCPCS: 36415; 84702; 85025; 86703; 86762; 86780; 86803; 87086; 87088; 87340; 87491; 87591; 88175; G0145

== ENCOUNTER → 2021-04-06 11:17 | Outpatient (CLI) | payer MEDICAID, SELFPAY ==
[2021-04-06 13:49] LABS: Glucose Challenge Gest 1H 50g 93 mg/dL (70-140)
== END ==
PROVIDERS: PCP Family Medicine; Visit Provider Obstetrics & Gynecology
DX: O99.211 Obesity complicating pregnancy, first trimester (principal); E66.9 Obesity, unspecified; Z3A.00 Weeks of gestation of pregnancy not specified
CPT/HCPCS: 36415; 82950

== ENCOUNTER → 2021-07-13 08:38 | Outpatient (CLI) | payer MEDICAID, SELFPAY ==
[2021-07-13 09:21] LABS: Hematocrit 38.5 % (37-47); Hemoglobin 12.9 g/dL (12.0-15.0); Mean Corp Hgb Conc 33.5 g/dL (32-36); Mean Corpuscular Hgb 28.7 pg (27.0-32.0); Mean Corpuscular Volume 85.6 fL (81-99); Mean Platelet Vol. 10.9 fl (6.2-12.0); Platelet Count 241 K/mm3 (150-450); RBC Distribution Width CV 14.1 % (11.6-14.6); RBC Distribution Width SD 44.1 fl (35.1-43.9); White Blood Count 12.4 K/mm3 (4.4-11.0)
[2021-07-13 09:39] LABS: Glucose Challenge Gest 1H 50g 116 mg/dL (70-140)
== END ==
PROVIDERS: PCP Family Medicine; Visit Provider Obstetrics & Gynecology
DX: Z34.83 Encounter for supervision of other normal pregnancy, third trimester (principal)
CPT/HCPCS: 36415; 82950; 85027

== ENCOUNTER 2021-09-04 10:52 | Outpatient (CLI) | payer OTHER, MEDICAID, SELFPAY ==
[2021-09-04 13:38] LABS: Group B Strep DNA By PCR Negative (Negative); Internal Control PASS; Probe Check PASS; Specimen Processing Control PASS
== END 2021-09-04 23:59 | disposition home or self-care (01) ==
LOC: LABSPEC 10:53
PROVIDERS: PCP Family Medicine; Referring Provider Student in an Organized Health Care Education/Training Program; Visit Provider Student in an Organized Health Care Education/Training Program
DX: Z36.85 Encounter for antenatal screening for Streptococcus B (principal)
CPT/HCPCS: 87081; 87653

== ENCOUNTER 2021-09-24 09:12 | Inpatient (IN) | payer OTHER, MEDICAID, SELFPAY ==
[2021-09-24] VITALS (21 sets, daily range): BP systolic 106–130; BP diastolic 37–78; PULSE 68–98; RESP 16–20; TEMP 35.9–36.8; O2SAT 95–100; BMI 51.3
[2021-09-24] MEDS: Lactated Ringers 1,000 ML 999 ML IV (09:40)
[2021-09-24] MEDS: Acetaminophen 500 MG Tablet 1000 MG PO ×3 (09:51→22:51)
[2021-09-24 09:58] LABS: Absolute Lymphocyte Count 1.94 X10^3/uL (0.83-4.51); Absolute Neutrophil Count 8.3 X10^3/uL (2.0-7.7); Basophil# 0.03 X10^3/uL; Basophil% 0.3 % (0-1); Eosinophils% 0.9 % (0-5); Hematocrit 38.3 % (37-47); Hemoglobin 13.2 g/dL (12.0-15.0); Lymphocyte # 1.94 X10^3/ul (0.83-4.51); Lymphocyte % 17.6 % (19-41); Mean Corp Hgb Conc 34.5 g/dL (32-36); Mean Corpuscular Hgb 29.5 pg (27.0-32.0); Mean Corpuscular Volume 85.5 fL (81-99); Monocyte# 0.66 X10^3/uL; NRBC Flagged by Analyzer 0 % (0-5); Neutrophil # 8.25 X10^3/uL (2.7-7.7); Neutrophil % 74.8 % (47-70); Platelet Count 238 K/mm3 (150-450); RBC Distribution Width SD 43.8 fl (35.1-43.9); Red Blood Count 4.48 M/mm3 (4.2-5.4)
[2021-09-24] MEDS: Lactated Ringers 1,000 ML 150 ML IV (10:42)
--- NOTE | 2021-09-24 11:12 | PCM.HP.BLA ---
History and Physical Date of Admission: 09/24/21 Chief complaint: Repeat section bilateral tubal ligation at term History of present illness: 26-year-old G3, P1 at 39 weeks and 1 day with LEOBARDO 09/30/2021 by 7 week u/s arrives for repeat section and bilateral tubal ligation. Denies headache, visual changes, chest pain, shortness of breath, nausea vomiting, right upper quadrant pain. Patient states good movement. Obstetric history: G1: 39-week primary section for failure to progress female 04/26/2019 G2: SAB G3: Current Past medical history: None Medications: vitamin Past surgical history: Allergies: No known drug allergies Social history: Denies smoking, alcohol use, drug use Family history: Denies history DVT or PE Review of systems: Besides above pertinent positives a full review of systems was performed and found to be negative Physical exam: Blood pressure 126/70 pulse 90 respiratory rate 18 temp 96.7 Fahrenheit SPO2 95% on room air General: Normal-appearing no acute distress HEENT: Normocephalic atraumatic no cervical lymphadenopathy Cardiac/respiratory: No use of accessory muscles, nonlabored breathing Abdomen: Soft, nontender, gravid Extremities: No peripheral edema normal peripheral pulses Psych: Normal affect normal demeanor nonpressured speech Labs: White blood cell count 11.0 hemoglobin 13.2 hematocrit 38.3% platelets 238 Assessment plan: 26-year-old G3, P1 at 39 weeks and 1 day for repeat section bilateral tubal ligation Admit labor and delivery CEFM GBS negative Ancef 3 g Routine orders Anesthesia to see
[2021-09-24] MEDS: Sodium Citrate/Citric Acid 30 ML UDC PO (11:51)
--- NOTE | 2021-09-24 12:22 | FALS_PTH ---
PATIENT: YAZ SAAB LOC: [facility] U#:[id number] AGE/SX: 26/F ROOM: WP005 RE09/24/[address]: Dr. Rm Castro MD : 1995 BED: 1 DIS: 09/25/2021 SPEC #: [id number] RECD: 09/24/21 16:47 STATUS: MAXINE REQ #: [id number] PAL: 09/24/21 12:[address]: Rm Castro DEPT: SURGICAL PATHOLOGY RECD BY: Cyndi Spear ENTERED: 09/25/21 09:34 SP TYPE: FALL TUBES OTHR DR: Dr. Carlton Melton MD Tissues: Fallopian tube Procedures: Surgery Specimen Level II HEADER OPERATION: Tubal ligation PRE-OP DIAGNOSIS: Sterilization TISSUE SUBMITTED: Fallopian tubes, suture in left tube MICROSCOPIC DIAGNOSIS Right fallopian tube: Complete cross-sections of fallopian tube with focal dystrophic microcalcifications. Left fallopian tube: Complete cross-sections of fallopian tube with no pathologic change. AM:courtney 09/28/2021 MICROSCOPIC DESCRIPTION Slides are reviewed. GROSS DESCRIPTION Received in fixative is one container labeled with the patient's name and designated bilateral fallopian tubes, suture in left tube. The specimen consists of bilateral fallopian tubes including fimbrial ends. The left fallopian tube is identified by a suture. The right fallopian tube measures 7.5 cm in length and 0.6 cm in diameter and the left fallopian tube measures 7 cm in length and up to 0.7 cm in diameter. Sections reveal unremarkable cut surfaces. Production Team Manager sections are submitted in two cassettes as follows: 1??right fallopian tube, 2 - left fallopian tube. / SJ:courtney 09/25/2021 TC:5 CPT: 52809 x2
[2021-09-24] MEDS: Oxytocin 30 units/NS 500 ml 30 UNITS/500 ML IV.SOLN 167 UNITS IV (13:06)
[2021-09-24] MEDS: Ketorolac 30 MG/ML Syringe IV ×2 (13:49→20:02)
[2021-09-24] MEDS: Lactated Ringers 1,000 ML 100 ML IV (16:34)
[2021-09-24 16:55] LABS: Pathology Specimen OB SEE PATHOLOGY REPORT
[2021-09-24] MEDS: 0.9% Saline Lock 10 ML Syringe IV ×2 (20:02→22:51)
[2021-09-25] VITALS (10 sets, daily range): BP systolic 108–125; BP diastolic 52–78; PULSE 76–94; RESP 14–18; TEMP 36.1–36.5; O2SAT 96–100
[2021-09-25] MEDS: Ketorolac 30 MG/ML Syringe IV ×2 (02:21→07:50)
[2021-09-25] MEDS: 0.9% Saline Lock 10 ML Syringe IV ×2 (02:21→07:50)
[2021-09-25] MEDS: Acetaminophen 500 MG Tablet 1000 MG PO ×2 (05:21→10:57)
[2021-09-25 06:11] LABS: Hemoglobin 10.9 g/dL (12.0-15.0); Mean Corpuscular Hgb 28.7 pg (27.0-32.0); Mean Corpuscular Volume 86.8 fL (81-99); Mean Platelet Vol. 10.9 fl (6.2-12.0); Platelet Count 194 K/mm3 (150-450); RBC Distribution Width CV 14.3 % (11.6-14.6); RBC Distribution Width SD 45.2 fl (35.1-43.9); White Blood Count 11.4 K/mm3 (4.4-11.0)
--- NOTE | 2021-09-25 07:52 | EX.PCM.OBRPT ---
Maternal Data Information LEOBARDO Calculator Estimated Delivery Date Method Current WG Current Estimate 09/09/21 LMP (Certain) 42w 2d Details Operative Information Date of Procedure: 09/24/21 Pre-Operative Diagnosis: History of section desires permanent sterilization Post-Operative Diagnosis: History of section desires permanent sterilization Findings Description of Procedure: Procedure: Repeat low transverse section Via Pfannenstiel incision, bilateral salpingectomy Surgeon: Rm Castro MD Anesthesia: Spinal EBL: 600 cc Urine output: 100 cc IV fluids: 700 cc Complications: None Specimen: Bilateral fallopian tubes Findings: Female in vertex position Apgars 8/9. Normal uterus, tubes, and ovaries. Consent: Patient with history of section desires permanent sterilization need of repeat section Via Pfannenstiel incision and bilateral salpingectomy. Patient understands the risk of the procedure include but are not limited to visceral or vascular injury, prolonged hospitalization, blood vision, reoperation. Patient stated understanding and wished to proceed. All questions were answered and consent was signed. Procedure: Patient was brought back to the OR where spinal anesthesia was found to be adequate. 3 g of Ancef were given for infection prophylaxis. Patient was prepared and draped in a supine position with leftward tilt. A Pfannenstiel incision was made at the skin with a scalpel. The incision was carried down to the fascia with scalpel. The fascia was excised and extended laterally. Inferior aspect of the fascia was grasped with Brian clamp and the underlying rectus and pyramidalis muscle were dissected off sharply masses. In a similar fashion the superior aspect the fascia was grasped with a clamp and the underlying rectus muscle was dissected off sharply. Rectus muscle was dissected at the midline down to the level of pubic symphysis. Preperitoneal fatty tissue was noted and peritoneum was entered bluntly. Peritoneum was extended superiorly and inferiorly with good visualization of the bladder. Bladder blade was inserted and vesicouterine peritoneum was identified. Low transverse hysterotomy was made. Hand was placed in the incision and gentle fundal pressure was applied once the head was brought into the incision and the bladder blade was removed. Head and shoulders were delivered with ease. Cord was cut clamped. Baby handed off to nursing. Placenta was delivered via cord traction and fundal massage. IV oxytocin was initiated in order to facilitate uterine contractions. Uterus was exteriorized and wiped out with dry laparotomy sponge in order to remove remaining placental membranes. Uterus was closed in a continuous running fashion. Good hemostasis was noted. Right fallopian tube was identified out to the fimbria and the mesosalpinx was cut and cauterized with the LigaSure device. In similar fashion left lobe tube was identified to the fimbriae and the mesosalpinx was cut and cauterized with LigaSure device. Bilateral fallopian tubes were sent to pathology. Good hemostasis was noted at bilateral surgical sites. Uterus was placed back into the abdominal cavity and incision was reinspected, good hemostasis was noted. Fascia was closed in a continuous running fashion with PDS suture. Skin was closed in a subcuticular fashion. All counts were correct x2. Patient tolerated procedure well and was brought to recovery in stable condition.
--- NOTE | 2021-09-25 10:16 | PCM.DC ---
Discharge Instructions Diet Discharge Diet: No restrictions Activity Discharge Activity: Return to Normal Activity, May Drive and May Shower May resume sexual activity in: 4-6 weeks Lifting Restrictions: No lifting over 25 pounds for 2 to 3 weeks Dressing / Incision Call your doctor if your incision/area has: Continuous Slow Oozing and Foul Smelling Discharge Call your doctor if you observe: Fever of 101 or Higher, Shortness of breath and Chest pain Follow Up Care Please Follow Up With: Rm Castro MD When: 2 weeks postoperatively Test Results: Test results from this visit will be discussed in further detail at your follow-up appointment, if applicable. Discharge Plan Admission Admit Date/Time: 09/24/21 09:12 Attending Provider: Rm Castro Primary Care Provider: Carlton Melton Discharge Orders/Prescriptions Prescriptions: New oxycodone 5 mg Tablet 5 mg PO Q6H PRN PRN (Reason: Pain Score 7-10) 4 Days Qty: 16 RF: 0 Continued PNV 459-[id number]-3-fish oil 1 EACH tablet,chewable 1 ea PO DAILY RF: 0 Referrals / Follow Up: Carlton Melton MD [Primary Care Provider] - Disposition Discharge Orders: Discharge Patient (Routine); Ordered 09/25/21 Ordered By: Dr. Rm Castro
--- NOTE | 2021-09-25 10:17 | PN.OBGYN_ITS ---
Subjective Subjective No overnight complaints Objective Data Objective Data Vital Signs: Vital Signs Temp Pulse Resp BP Pulse Ox 97.3 F L 79 14 109/52 L 99 09/25/21 07:47 09/25/21 07:47 09/25/21 07:47 09/25/21 07:47 09/25/21 07:47 Oxygen Delivery Method Room Air Weight: 347 lb 14.231 oz Body Mass Index (BMI) 51.3 Intake & Output: Intake and Output for Last 24 Hours 09/23/21 09/24/21 09/25/21 23:59 23:59 23:59 Intake Total 2772.5 / 2772.5 1618.33 / 1618.33 Output Total 300 / 300 825 / 825 Balance 2472.5 / 2472.5 793.33 / 793.33 Lab / Micro Data Result Diagrams: 09/25/21 06:05 Labs: Laboratory Results - last 24 hr 09/24/21 09:40: Blood Type O POSITIVE, Antibody Screen NEGATIVE 09/25/21 06:05: WBC 11.4 H, RBC 3.80 L, Hgb 10.9 L, Hct 33.0 L, MCV 86.8, MCH 28.7, MCHC 33.0, RDW Std Deviation 45.2 H, RDW Coeff of Luisa 14.3, Plt Count 194, MPV 10.9 Micro: Microbiology 09/24/21 09:50 Nasal Secretion SARS-CoV-2 Antigen (Rapid) - Final Physical Exam Const alert, oriented x3, no apparent distress, average body habitus, healthy appearing and well nourished HEENT normocephalic and moist oral mucous membranes Head and Scalp: atraumatic Face and Sinus: normal facial exam Eyes PERRL Neck full ROM Resp normal respiratory effort, no retractions and no use of accessory muscles GI GI Narrative: Bandage clean dry and intact Extremity normal to inspection, full ROM and no clubbing, cyanosis or edema Psych mental status grossly normal, affect normal, speech normal and activity/motor behavior normal Assessment & Plan (1) delivery delivered: PLAN: Postop day 1 status post repeat section bilateral tubal ligation. Breast-feeding with ease. Pain well controlled. Okay to discharge home if okay with circuit board repair technician
[2021-09-25] MEDS: Senna/Docusate Sodium 1 Tablet PO (10:57)
[2021-09-25] MEDS: Enoxaparin 40 MG/0.4 ML Syringe SC (10:58)
[2021-09-25] MEDS: Ibuprofen 600 MG Tablet PO (14:01)
== END 2021-09-25 14:10 | disposition home or self-care (01) | DRG 785 ==
PROVIDERS: Student in an Organized Health Care Education/Training Program; Admitting Provider Obstetrics & Gynecology; PCP Family Medicine; Referring Provider Obstetrics & Gynecology; Visit Provider Obstetrics & Gynecology
PROC: (CPT 59514; principal; 2021-09-24 11:45)
DX: O34.211 Maternal care for low transverse scar from previous cesarean delivery (principal); Z30.2 Encounter for sterilization; Z37.0 Single live birth; Z3A.39 39 weeks gestation of pregnancy; Z87.59 Personal history of other complications of pregnancy, childbirth and the puerperium
CPT/HCPCS: 59025; 59050; 85025; 85027; 86850; 86900; 86901; 87426; 88302; 99218; J7120; A4216; G0378; J2405

== ENCOUNTER 2022-10-09 17:19 | Inpatient (IN) | payer MEDICAID, SELFPAY ==
[2022-10-09 17:19] VITALS: BP 185/90; PULSE 70; RESP 20; TEMP 36.1; O2SAT 100; BMI 47.9
--- NOTE | 2022-10-09 17:28 | US_ITS ---
EXAM: US ABDOMEN LIMITED, RIGHT UPPER QUADRANT CLINICAL INDICATION: RUQ PAIN W/ NAUSEA TECHNIQUE: Real-time ultrasound of the right upper quadrant with image documentation. This report was created using [employer] report generation technology. COMPARISON: None. FINDINGS: LIVER: The liver is increased in echogenicity. The liver measures 19.1 cm. No intrahepatic biliary ductal dilation. GALLBLADDER: There are multiple echogenic foci in the gallbladder compatible with gallstones. Gallbladder wall measures 1 mm. No pericholecystic fluid. Negative sonographic Pittman''s sign. COMMON BILE DUCT: Common bile duct measures 4 mm. The proximal common bile duct is within normal limits for the patient''s age. PANCREAS: Pancreas is not well-visualized due to overlying bowel gas. RIGHT KIDNEY: The right kidney measures 12.3 x 4.9 x 6.1 cm. There is no hydronephrosis. No shadowing calculus. No focal lesion or perinephric collection is demonstrated. US/Gallbladder IMPRESSION: Cholelithiasis with no sonographic evidence of cholecystitis. There is fatty infiltration of the liver. Electronically Signed: Hemal Parks MD at 19:00 EDT ,
--- NOTE | 2022-10-09 17:29 | ED.VIS.GI ---
HPI HPI - GI History of Present Illness Chief Complaint: Abd Pain Narrative Narrative: 27-year-old female who denies significant past medical history, states she does not take daily medication, presents with a few hours of right upper quadrant abdominal pain. She states that she felt more like hunger pains, then tried to eat some peppers, and now has nausea but no vomiting. She has right upper quadrant abdominal pain that radiates to her back into her right shoulder. She denies any problems with bowel movements. No dysuria or hematuria. No fevers or chills. She called her sister who is a nurse who told her to come to the emergency department for evaluation of her gallbladder. She states she has not had this pain previously. No exacerbating or alleviating factors although food seems to have made it worse. PFSH PFSH Allergy/AdvReac Type Severity Reaction Status Date / Time No Known Allergies Allergy Verified 10/09/22 17:21 Family History Mother Hypertension Heart disease Grandmother Cancer Lymphnode Sister Lupus Rheumatoid arthritis Brother Marfan syndrome Surgical History deliv due to previous difficult deliv, deliv, curr hospitaliz Social History Smoking Status: Never smoker alcohol intake: never substance use type: does not use caffeine: Yes what type of physical activity do you participate in: walking seatbelt use: always do you feel safe at home: Yes additional social history: Single- works at [employer] ROS Narrative Constitutional: No fever, no chills. HEENT: No sore throat. No neck pain. No loss of vision. No rhinorrhea. Cardiovascular: No chest pain. No palpitations. No pedal edema. Respiratory: No cough, no shortness of breath. Abdominal: Right upper quadrant abdominal pain. Positive nausea. No vomiting. Genitourinary: No dysuria. No hematuria. Musculoskeletal: No myalgias. No arthralgias. Neurologic: No headaches. No dizziness. No lightheadedness. Skin: No rash. No change in color. Psychiatric: No depression. No anxiety. EXAM Physical Exam Narrative Exam Narrative: Afebrile. Vital signs noted. HEENT: Normocephalic. Atraumatic. PERRL, EOMI. Neck soft and supple. No point tenderness or step off. Cardiovascular: Regular rate and rhythm. No murmurs, rubs, or gallops appreciated. Respiratory: No tachypnea. Lungs clear to auscultation bilaterally. Gastrointestinal: Abdomen soft, obese, with mild tenderness in right upper quadrant, with normoactive bowel sounds. No rebound or guarding. Questionable Pittman sign however. No pain over McBurney's point, no pain in right lower quadrant. Neurological: Awake. Alert. Nonfocal, nonlateralizing. Skin: No rash. Normal color. No pallor. Musculoskeletal: No pedal edema. Full range of motion extremities. Const Vital Signs: 10/09/22 17:19 Temperature 97.0 F L Temperature Source Temporal Pulse Rate 70 Respiratory Rate 20 H Blood Pressure 185/90 H Blood Pressure Mean 121 Pulse Ox 100 Oxygen Delivery Method Room Air MDM MDM MDM Narrative Medical decision making narrative: Patient was administered morphine and ondansetron for analgesia. Her pain is in the right upper quadrant radiating to her back, and worse after eating, suspicion is higher for gallbladder pathology such as cholecystitis versus choledocholithiasis. CBC, CMP, and lipase were obtained, and ultrasound of the right upper quadrant will also be obtained. I reviewed the patient's laboratory work, she has slightly elevated white count of 12.5, hemoglobin normal at 13.9, hematocrit 43.8, platelet count normal at 257. CMP was obtained and reviewed, and she has elevated chloride of 109 which I think is nonspecific, normal BUN of 13 and normal creatinine 0.8. AST shows normal count of 30 with ALT slightly elevated at 61, alk phos normal at 86, lipase normal at 122. Urinalysis negative for infection. She does have 5-10 squamous epithelial cells which I think is a contaminant. Ultrasound was obtained of the right upper quadrant. There is no pericholecystic fluid, no gallbladder wall thickening at 1 mm. Common bile duct normal at 4 mm. She does have numerous gallstones. She required 2 doses of morphine, her abdomen remains soft. She does state that the second dose of morphine brought her pain down to a more acceptable level, but she still feels pain in the right upper quadrant. I discussed patient with Dr. Almanza with general surgery, to see if she could perform outpatient follow-up versus inpatient treatment. He suggested that given her continued pain, that he would admit her to the hospital, keep her on clear liquids, start antibiotics, and perform cholecystectomy on Tuesday. Patient found this plan acceptable. I deferred antibiotics to general surgery at his request. Disposition is admit in stable condition. History & Record Review Discussion w/independent historian: Patient Additional record(s) reviewed:: Other (No prior ED visits to review.) Lab Data Attestation: I reviewed the patient's lab results. Labs: Laboratory Results - last 24 hr 10/09/22 10/09/22 10/09/22 17:43 17:43 18:30 WBC 12.5 H RBC 5.04 Hgb 13.9 Hct 43.8 MCV 86.9 MCH 27.6 MCHC 31.7 L RDW Std Deviation 45.0 H RDW Coeff of Luisa 14.1 Plt Count 257 MPV 11.3 Immature Gran % (Auto) 0.300 Neut % (Auto) 70.4 H Lymph % (Auto) 21.3 [place] % (Auto) 5.7 Eos % (Auto) 1.8 Baso % (Auto) 0.5 Absolute Neuts (auto) 8.8 H Absolute Lymphs (auto) 2.65 Nucleated RBC % 0 Sodium 143 Potassium 4.0 Chloride 109 H Carbon Dioxide 28.0 Anion Gap 6 BUN 13 Creatinine 0.86 Estim Creat Clear Calc 101.78 Est GFR (MDRD) Af Amer 100 Est GFR (MDRD) Non-Af 83 BUN/Creatinine Ratio 15.1 Glucose 135 H Calcium 8.7 Total Bilirubin 0.20 AST 30 ALT 61 H Alkaline Phosphatase 86 Total Protein 7.5 Albumin 3.6 Globulin 3.9 Albumin/Globulin Ratio 0.9 Lipase 122 Urine Color Yellow Urine Clarity Clear Urine pH 5.0 Ur Specific [place] 1.025 Urine Protein 15 H Urine Glucose (UA) Normal Urine Ketones 5 H Urine Occult Blood Negative Urine Nitrite Negative Urine Bilirubin Negative Urine Urobilinogen Normal Ur Leukocyte Esterase Negative Urine RBC 0 SEEN Urine WBC 0 SEEN Ur Squamous Epith Cells 5-10 SEEN Urine Bacteria 1+ Urine Mucus 0 SEEN Radiography Diagnostic Testing: Clinical Impression(s) from Imaging Studies Gallbladder Ultrasound 10/09/22 17:28 IMPRESSION: Cholelithiasis with no sonographic evidence of cholecystitis. There is fatty infiltration of the liver. Electronically Signed: Hemal Parks MD at 19:00 EDT , Differential Diagnosis Abdominal Pain: Appendicitis, Cholecystitis and Pancreatitis Management Discussion w/another healthcare provider: [facility] [employer] (Dr. Almanza, General Surgery) Additional Tests and Interventions Diagnositc testing considered but not performed: CT scan, pain is in right upper quadrant so ultrasound was preferred. Medications considered but not ordered: Antibiotics. Deferred at request of surgeon who stated would admit and put order in. Treatment and Re-Evaluation :: Repeat examination after 2 doses of morphine shows her abdomen to remain soft but patient still having pain. Discharge Plan Triage Chief Complaint: Abd Pain ED Provider: Neeraj Jeffries Dx/Rx/DC Orders Primary Care Provider: Carlton Melton Referrals: Cralton Melton MD [Primary Care Provider] -
[2022-10-09] MEDS: Ondansetron 4 MG/2 ML Vial IV (17:42)
[2022-10-09] MEDS: Morphine 4 MG/ML Syringe IV ×3 (17:42→20:43)
[2022-10-09] MEDS: 0.9% Normal Saline 1,000 ML 1000 ML IV (17:42)
[2022-10-09 17:55] LABS: Absolute Lymphocyte Count 2.65 X10^3/uL (0.83-4.51); Absolute Neutrophil Count 8.8 X10^3/uL (2.0-7.7); Basophil# 0.06 X10^3/uL; Basophil% 0.5 % (0-1); Eosinophil# 0.22 X10^3/uL; Eosinophils% 1.8 % (0-5); Hematocrit 43.8 % (37-47); Hemoglobin 13.9 g/dL (12.0-15.0); Lymphocyte # 2.65 X10^3/ul (0.83-4.51); Lymphocyte % 21.3 % (19-41); Mean Corp Hgb Conc 31.7 g/dL (32-36); Mean Corpuscular Hgb 27.6 pg (27.0-32.0); Mean Corpuscular Volume 86.9 fL (81-99); Mean Platelet Vol. 11.3 fl (6.2-12.0); Monocyte# 0.71 X10^3/uL; Monocyte% 5.7 % (0-10); NRBC Flagged by Analyzer 0 % (0-5); Neutrophil # 8.79 X10^3/uL (2.7-7.7); Neutrophil % 70.4 % (47-70); Platelet Count 257 K/mm3 (150-450); RBC Distribution Width CV 14.1 % (11.6-14.6); Red Blood Count 5.04 M/mm3 (4.2-5.4); White Blood Count 12.5 K/mm3 (4.4-11.0)
[2022-10-09 18:12] LABS: ALB/GLOB Ratio 0.9 RATIO (0.9-2.4); AST(SGOT) 30 U/L (15-37); Alanine Aminotransfer ALT/SGPT 61 U/L (13-56); Albumin, Serum 3.6 g/dL (3.2-5.0); Alkaline Phosphatase 86 U/L (45-117); Anion Gap 6 (5-15); BUN 13 mg/dL (7-18); BUN/Creat Ratio 15.1 RATIO (10-20); Calcium,Total 8.7 mg/dL (8.5-10.1); Chloride 109 mmol/L (98-107); Creatinine, Serum 0.86 mg/dL (0.55-1.02); EST Glomerular Filtration Rate 83 mL/min (>60); Est Glom Filt Rate - Afr Amer 100 mL/min (>60); Estimated Creatinine Clearance 101.78 ml/min; Globulin 3.9 g/dL (2.2-4.2); Glucose 135 mg/dL (74-106); Lipase 122 U/L (73-393); Protein, Total 7.5 g/dL (6.4-8.2); Sodium Level 143 mmol/L (136-145)
[2022-10-09 18:42] LABS: Mucous, Urine 0 SEEN /hpf (<or=2+); Red Blood Cells-Urine 0 SEEN /hpf (0-5); White Blood Cells 0 SEEN /hpf (0-5)
[2022-10-09 18:43] LABS: Color, Urine Yellow (Yellow); Glucose, Dipstick Normal (Normal); Ketone-Dipstick 5 mg/dl (Negative); Leukocyte Esterase-Dipstick Negative /ul (Negative); Nitrite-Dipstick Negative (Negative); Occult Blood-Urine Negative /ul (Negative); Protein-Dipstick 15 mg/dl (Negative); Specific Gravity, Urine 1.025 (1.002-1.030); Urine Bilirubin Dipstick Negative (Negative); Urine Clarity Clear (Clear); Urine Urobilinogen Normal (Normal)
[2022-10-09 18:53] LABS: Bacteria 1+ /hpf (None Seen); Squamous Epithelial Cells - UA 5-10 SEEN /hpf (5-10)
[2022-10-09 19:19] VITALS: PULSE 87
--- NOTE | 2022-10-09 19:25 | EKG12_ITS ---
Test Reason : Blood Pressure : / mmHG Vent. Rate : 064 BPM Atrial Rate : 064 BPM P-R Int : 164 ms QRS Dur : 090 ms QT Int : 418 ms P-R-T Axes : -03 050 072 degrees QTc Int : 431 ms Normal sinus rhythm Nonspecific T wave abnormality Abnormal ECG Confirmed by JONELLE BETANCUR, KODAK ([id number]), slot editor RITESH WICK ([id number]) on 10/11/2022 9:54:09 AM Referred By: Confirmed By:SORAIDA SAL MD
[2022-10-09 19:39] VITALS: BP 140/84; PULSE 88; RESP 16; TEMP 36.6; O2SAT 99
[2022-10-09 20:10] VITALS: BMI 47.9
[2022-10-09 20:22] VITALS: BP 144/94; PULSE 57; RESP 16; TEMP 36.6; O2SAT 99
[2022-10-09] MEDS: 0.9% Normal Saline 1,000 ML 100 ML IV (20:43)
[2022-10-09] MEDS: 0.9% Saline Lock 10 ML Syringe IV (20:43)
[2022-10-10] MEDS: Morphine 4 MG/ML Syringe IV (00:22)
[2022-10-10 00:25] VITALS: BP 129/89; PULSE 60; RESP 16; TEMP 36.8; O2SAT 96
[2022-10-10 05:58] VITALS: BP 144/86; PULSE 76; RESP 16; TEMP 36.9; O2SAT 96
[2022-10-10] MEDS: 0.9% Normal Saline 1,000 ML 100 ML IV ×2 (06:01→15:39)
[2022-10-10] MEDS: Ketorolac 15 MG/ML Vial IV ×2 (06:01→17:11)
[2022-10-10 06:13] LABS: Absolute Lymphocyte Count 3.09 X10^3/uL (0.83-4.51); Absolute Neutrophil Count 9.5 X10^3/uL (2.0-7.7); Basophil# 0.04 X10^3/uL; Basophil% 0.3 % (0-1); Eosinophil# 0.19 X10^3/uL; Eosinophils% 1.4 % (0-5); Hematocrit 39.9 % (37-47); Hemoglobin 13.1 g/dL (12.0-15.0); Lymphocyte # 3.09 X10^3/ul (0.83-4.51); Lymphocyte % 22.6 % (19-41); Mean Corp Hgb Conc 32.8 g/dL (32-36); Mean Corpuscular Hgb 28.1 pg (27.0-32.0); Mean Corpuscular Volume 85.6 fL (81-99); Mean Platelet Vol. 11.3 fl (6.2-12.0); Monocyte# 0.87 X10^3/uL; Monocyte% 6.4 % (0-10); NRBC Flagged by Analyzer 0 % (0-5); Neutrophil # 9.48 X10^3/uL (2.7-7.7); Neutrophil % 69.1 % (47-70); Platelet Count 234 K/mm3 (150-450); RBC Distribution Width CV 14.2 % (11.6-14.6); RBC Distribution Width SD 43.8 fl (35.1-43.9); Red Blood Count 4.66 M/mm3 (4.2-5.4); White Blood Count 13.7 K/mm3 (4.4-11.0)
[2022-10-10 06:55] LABS: ALB/GLOB Ratio 0.9 RATIO (0.9-2.4); AST(SGOT) 24 U/L (15-37); Alanine Aminotransfer ALT/SGPT 52 U/L (13-56); Albumin, Serum 3.3 g/dL (3.2-5.0); Alkaline Phosphatase 71 U/L (45-117); Anion Gap 7 (5-15); BUN 8 mg/dL (7-18); Chloride 109 mmol/L (98-107); Creatinine, Serum 0.72 mg/dL (0.55-1.02); EST Glomerular Filtration Rate 101 mL/min (>60); Est Glom Filt Rate - Afr Amer 123 mL/min (>60); Estimated Creatinine Clearance 121.57 ml/min; Globulin 3.5 g/dL (2.2-4.2); Glucose 111 mg/dL (74-106); Lipase 58 U/L (73-393); Potassium 3.6 mmol/L (3.5-5.1); Protein, Total 6.8 g/dL (6.4-8.2); Sodium Level 140 mmol/L (136-145)
--- NOTE | 2022-10-10 07:22 | HP.PCM.SX_ITS ---
HPI - General General Date of Admission: 10/09/22 HPI Narrative YAZ SAAB, is a 27 F who presented to the emergency room last night with abdominal pain. She says the abdominal pain started yesterday afternoon. She describes it as right upper quadrant radiating around to the back into her spine. She says she did not have any nausea or vomiting. She says that overnight her pain was better but she did have these attacks but they were not as sharp as the first episode. She denies any fevers or chills. [facility] Home Medications NK 10/09/22 [History Last Taken Unknown] Allergy/AdvReac Type Severity Reaction Status Date / Time No Known Allergies Allergy Verified 10/09/22 17:21 Family History Mother Hypertension Heart disease Grandmother Cancer Lymphnode Sister Lupus Rheumatoid arthritis Brother Marfan syndrome Surgical History (Updated 10/09/22 @ 20:13 by Rodríguez Eubanks) deliv due to previous difficult deliv, deliv, curr hospitaliz H/O tubal ligation Social History Smoking Status: Never smoker alcohol intake: never substance use type: does not use caffeine: Yes what type of physical activity do you participate in: walking seatbelt use: always do you feel safe at home: Yes additional social history: Single- works at [employer] Constitutional Constitutional: Denies anorexia, chills, fatigue or fever(s) Eyes Eyes: Denies blurry vision ENT HEENT: Denies abnormal hearing Cardiovascular Cardiovascular: Denies chest pain Respiratory/Chest Respiratory/Chest: Denies cough or dyspnea Gastrointestinal Gastrointestinal: Reports abdominal pain; Denies coffee ground emesis, nausea, rectal bleeding or vomiting Genitourinary Genitourinary: Denies change in urinary stream Musculoskeletal Musculoskeletal: Denies abnormal gait Integumentary Integumentary: Denies new lesions Neurologic Neurologic: Denies abnormal gait Psychiatric Psychiatric: Denies anxiety Endocrine Endocrinology: Denies flushing Vital Signs Vital Signs Vital Signs: 10/09/22 17:19 10/09/22 19:39 10/09/22 19:19 Temperature 97.0 F L 97.8 F Temperature Source Temporal Temporal Pulse Rate 70 88 87 Respiratory Rate 20 H 16 Blood Pressure 185/90 H 140/84 H Blood Pressure Mean 121 102 Pulse Ox 100 99 Oxygen Delivery Method Room Air Room Air 10/09/22 20:22 10/10/22 00:25 10/10/22 05:58 Temperature 97.8 F 98.2 F 98.4 F Temperature Source Oral Oral Oral Pulse Rate 57 L 60 76 Respiratory Rate 16 16 16 Blood Pressure 144/94 H 129/89 H 144/86 H Blood Pressure Mean 110 102 105 Pulse Ox 99 96 96 Oxygen Delivery Method Room Air Room Air Room Air Weight Weight: 324 lb 8.327 oz Body Mass Index (BMI) 47.9 Results Lab / Micro Data Result Diagrams: 10/10/22 05:55 10/10/22 05:55 Labs: Laboratory Results - last 24 hr 10/09/22 17:43: WBC 12.5 H, RBC 5.04, Hgb 13.9, Hct 43.8, MCV 86.9, MCH 27.6, MCHC 31.7 L, RDW Std Deviation 45.0 H, RDW Coeff of Luisa 14.1, Plt Count 257, MPV 11.3, Immature Gran % (Auto) 0.300, Neut % (Auto) 70.4 H, Lymph % (Auto) 21.3, [place] % (Auto) 5.7, Eos % (Auto) 1.8, Baso % (Auto) 0.5, Absolute Neuts (auto) 8.8 H, Absolute Lymphs (auto) 2.65, Nucleated RBC % 0 10/09/22 17:43: Sodium 143, Potassium 4.0, Chloride 109 H, Carbon Dioxide 28.0, Anion Gap 6, BUN 13, Creatinine 0.86, Estim Creat Clear Calc 101.78, Est GFR (MDRD) Af Amer 100, Est GFR (MDRD) Non-Af 83, BUN/Creatinine Ratio 15.1, Glucose 135 H, Calcium 8.7, Total Bilirubin 0.20, AST 30, ALT 61 H, Alkaline Phosphatase 86, Total Protein 7.5, Albumin 3.6, Globulin 3.9, Albumin/Globulin Ratio 0.9, Lipase 122 10/09/22 18:30: Urine Color Yellow, Urine Clarity Clear, Urine pH 5.0, Ur Specific [place] 1.025, Urine Protein 15 H, Urine Glucose (UA) Normal, Urine Ketones 5 H, Urine Occult Blood Negative, Urine Nitrite Negative, Urine Bilirubin Negative, Urine Urobilinogen Normal, Ur Leukocyte Esterase Negative, Urine RBC 0 SEEN, Urine WBC 0 SEEN, Ur Squamous Epith Cells 5-10 SEEN, Urine Bacteria 1+, Urine Mucus 0 SEEN 10/10/22 05:55: WBC 13.7 H, RBC 4.66, Hgb 13.1, Hct 39.9, MCV 85.6, MCH 28.1, MCHC 32.8, RDW Std Deviation 43.8, RDW Coeff of Luisa 14.2, Plt Count 234, MPV 11.3, Immature Gran % (Auto) 0.200, Neut % (Auto) 69.1, Lymph % (Auto) 22.6, [place] % (Auto) 6.4, Eos % (Auto) 1.4, Baso % (Auto) 0.3, Absolute Neuts (auto) 9.5 H, Absolute Lymphs (auto) 3.09, Nucleated RBC % 0 10/10/22 05:55: Sodium 140, Potassium 3.6, Chloride 109 H, Carbon Dioxide 24.0, Anion Gap 7, BUN 8, Creatinine 0.72, Estim Creat Clear Calc 121.57, Est GFR (MDRD) Af Amer 123, Est GFR (MDRD) Non-Af 101, BUN/Creatinine Ratio 11.0, Glucose 111 H, Calcium 8.0 L, Total Bilirubin 0.70, AST 24, ALT 52, Alkaline Phosphatase 71, Total Protein 6.8, Albumin 3.3, Globulin 3.5, Albumin/Globulin Ratio 0.9, Lipase 58 L Radiology Impression Gallbladder Ultrasound 10/09/22 17:28 IMPRESSION: Cholelithiasis with no sonographic evidence of cholecystitis. There is fatty infiltration of the liver. Electronically Signed: Hemal Parks MD at 19:00 EDT , Assessment & Plan Assessment/Plan (1) Acute cholecystitis: (2) Morbid obesity: PLAN: Plan Patient has cholelithiasis with pain in the right upper quadrant and she may be having early acute cholecystitis as her white count was slightly elevated but her ultrasound of her gallbladder showed gallstones with no wall thickening or pericholecystic fluid. Patient was in too much pain to go home so admitted are planning on performing laparoscopic cholecystectomy tomorrow. I kept her on clear liquids today and I will keep her on antibiotics. I discussed the procedure in detail with the patient. I discussed the risks, benefits, and alternatives of the procedure. I discussed the risks including but not limited to bleeding, infection, injury to surrounding organs such as the liver, bile duct, bowels. I did discuss the possibility of having to convert to an open procedure as well as the possibility that if any injuries occurred this may necessitate further surgery at a tertiary care center. I will give her clear liquids and antibiotics today and make her n.p.o. after midnight and take her for surgery tomorrow. Jovanny Almanza MD Pager: [facility] [address] [place] [address], [address] [place] [address] Office:
[2022-10-10 08:05] VITALS: BP 129/86; PULSE 74; RESP 16; TEMP 36.8; O2SAT 98
[2022-10-10] MEDS: Pantoprazole Sodium 40 MG Tablet PO (09:32)
[2022-10-10 13:57] VITALS: BP 141/82; PULSE 79; RESP 16; TEMP 36.9; O2SAT 97
[2022-10-10 20:18] VITALS: BP 144/89; PULSE 81; RESP 16; TEMP 36.7; O2SAT 98
[2022-10-11] VITALS (10 sets, daily range): BP systolic 118–154; BP diastolic 65–92; PULSE 63–99; RESP 16–18; TEMP 36.6–37.3; O2SAT 2–98; BMI 47.9
[2022-10-11] MEDS: 0.9% Saline Lock 10 ML Syringe IV ×2 (02:12→16:31)
[2022-10-11] MEDS: 0.9% Normal Saline 1,000 ML 100 ML IV (02:12)
[2022-10-11 05:53] LABS: Absolute Lymphocyte Count 2.98 X10^3/uL (0.83-4.51); Absolute Neutrophil Count 5.1 X10^3/uL (2.0-7.7); Basophil# 0.04 X10^3/uL; Basophil% 0.4 % (0-1); Eosinophil# 0.25 X10^3/uL; Eosinophils% 2.8 % (0-5); Hematocrit 39.3 % (37-47); Hemoglobin 12.5 g/dL (12.0-15.0); Lymphocyte # 2.98 X10^3/ul (0.83-4.51); Lymphocyte % 32.8 % (19-41); Mean Corp Hgb Conc 31.8 g/dL (32-36); Mean Corpuscular Hgb 27.3 pg (27.0-32.0); Mean Corpuscular Volume 85.8 fL (81-99); Mean Platelet Vol. 11.3 fl (6.2-12.0); Monocyte# 0.74 X10^3/uL; Monocyte% 8.1 % (0-10); NRBC Flagged by Analyzer 0 % (0-5); Neutrophil # 5.05 X10^3/uL (2.7-7.7); Neutrophil % 55.6 % (47-70); Platelet Count 228 K/mm3 (150-450); RBC Distribution Width CV 14.1 % (11.6-14.6); RBC Distribution Width SD 43.7 fl (35.1-43.9); Red Blood Count 4.58 M/mm3 (4.2-5.4); White Blood Count 9.1 K/mm3 (4.4-11.0)
[2022-10-11 06:11] LABS: ALB/GLOB Ratio 0.9 RATIO (0.9-2.4); AST(SGOT) 21 U/L (15-37); Alanine Aminotransfer ALT/SGPT 46 U/L (13-56); Albumin, Serum 2.9 g/dL (3.2-5.0); Alkaline Phosphatase 62 U/L (45-117); Anion Gap 7 (5-15); BUN 6 mg/dL (7-18); BUN/Creat Ratio 8.4 RATIO (10-20); Chloride 110 mmol/L (98-107); Creatinine, Serum 0.72 mg/dL (0.55-1.02); EST Glomerular Filtration Rate 103 mL/min (>60); Est Glom Filt Rate - Afr Amer 124 mL/min (>60); Estimated Creatinine Clearance 121.57 ml/min; Globulin 3.3 g/dL (2.2-4.2); Glucose 96 mg/dL (74-106); Potassium 3.4 mmol/L (3.5-5.1); Protein, Total 6.2 g/dL (6.4-8.2); Sodium Level 143 mmol/L (136-145)
--- NOTE | 2022-10-11 07:19 | RAD_ITS ---
STUDY: INTRAOPERATIVE CHOLANGIOGRAM. REASON FOR EXAM: Female, 27 years old. LAP MADELINE FLUOROSCOPY TIME (if supplied): ( 34.1 seconds ) minutes/seconds. 22.66 mgy TECHNIQUE: An intraoperative Cholangiogram was performed by the surgeon. Imaging was submitted. COMPARISON: None. FINDINGS: The visualized intra and extrahepatic biliary ducts are unremarkable. No intraluminal filling defect is seen. Free flow of contrast is seen in the duodenum. RAD/Cholangiogram/ O R,Initial IMPRESSION: Unremarkable intraoperative cholangiogram. Electronically Signed: Edwardo Chávez MD at 15:08 EDT ,
--- NOTE | 2022-10-11 07:53 | PN.SURG_ITS ---
Subjective Subjective Patient reports she is a little sore but other than that she is not having much pain today. Denies any nausea or vomiting or fevers or chills overnight. Objective Data Objective Data Vital Signs: Vital Signs Temp Pulse Resp BP Pulse Ox O2 Del Method 98.7 F 84 16 118/74 97 Room Air 10/11/22 02:08 10/11/22 02:08 10/11/22 02:08 10/11/22 02:08 10/11/22 02:08 10/11/22 02:08 Oxygen Delivery Method Room Air Weight: 324 lb 8.327 oz Body Mass Index (BMI) 47.9 Intake & Output: Intake and Output for Last 24 Hours 10/09/22 10/10/22 10/11/22 23:59 23:59 23:59 Intake Total 1000.25 / 1000.25 2845.50 / 2845.50 411.67 / 411.67 Balance 1000.25 / 1000.25 2845.50 / 2845.50 411.67 / 411.67 Lab / Micro Data Result Diagrams: 10/11/22 05:25 10/11/22 05:25 Labs: Laboratory Results - last 24 hr 10/11/22 05:25: WBC 9.1, RBC 4.58, Hgb 12.5, Hct 39.3, MCV 85.8, MCH 27.3, MCHC 31.8 L, RDW Std Deviation 43.7, RDW Coeff of Luisa 14.1, Plt Count 228, MPV 11.3, Immature Gran % (Auto) 0.300, Neut % (Auto) 55.6, Lymph % (Auto) 32.8, [place] % (Auto) 8.1, Eos % (Auto) 2.8, Baso % (Auto) 0.4, Absolute Neuts (auto) 5.1, Ab solute Lymphs (auto) 2.98, Nucleated RBC % 0 10/11/22 05:25: Sodium 143, Potassium 3.4 L, Chloride 110 H, Carbon Dioxide 26.0, Anion Gap 7, BUN 6 L, Creatinine 0.72, Estim Creat Clear Calc 121.57, Est GFR (MDRD) Af Amer 124, Est GFR (MDRD) Non-Af 103, BUN/Creatinine Ratio 8.4 L, Glucose 96, Calcium 8.0 L, Total Bilirubin 0.60, AST 21, ALT 46, Alkaline Phosphatase 62, Total Protein 6.2 L, Albumin 2.9 L, Globulin 3.3, Albumin/Globulin Ratio 0.9 Physical Exam Const oriented x3 Resp normal respiratory effort GI soft to palpation Inspection: Negative for abdominal distention Assessment & Plan Assessment/Plan (1) Acute cholecystitis: PLAN: White count has improved on antibiotics. Plan for laparoscopic cholecy stectomy this afternoon. Surgery was once again discussed with her and she had no further questions. Jovanny Almanza MD Pager: [facility] [address] [place] [address], [address] [place] [address] Office:
[2022-10-11] MEDS: Lactated Ringers 1,000 ML 15 ML IV ×2 (13:36→14:32)
--- NOTE | 2022-10-11 13:54 | NURSING ---
Patient off the floor for surgery.
[2022-10-11] MEDS: Bupiv/Epi 0.25% 30 ML Vial (13:57)
--- NOTE | 2022-10-11 14:30 | GALL_PTH ---
PATIENT: YAZ SAAB LOC: MS3 U#:[id number] AGE/SX: 27/F ROOM: MS318 RE10/09/[address]: Dr. Jovanny Almanza MD : 1995 BED: 1 DIS: 10/11/2022 SPEC #: [id number] RECD: 10/11/22 15:45 STATUS: MAXINE FATIMA #: [id number] PAL: 10/11/22 14:[address]: Jovanny Almanza DEPT: SURGICAL PATHOLOGY RECD BY: Cyndi Spear ENTERED: 10/12/22 08:20 SP TYPE: CLINT ESPARZA DR: Dr. Carlton Melton MD Tissues: Gallbladder, NOS Procedures: Surgery Specimen Level III HEADER OPERATION: Laparoscopic cholecystectomy with IOC PRE-OP DIAGNOSIS: Acute cholecystitis, morbid obesity TISSUE SUBMITTED: Gallbladder MICROSCOPIC DIAGNOSIS Gallbladder, cholecystectomy: Acute and chronic ulcerated cholecystitis and cholelithiasis. SJ:courtney 10/13/2022 MICROSCOPIC DESCRIPTION Slides are reviewed. GROSS DESCRIPTION Received is one container labeled with the patient's name and designated gallbladder. The specimen consists of a gallbladder measuring 7.0 cm in length and up to 3.5 cm in diameter. The external surface is pink-martínez, smooth and glistening for the most part. Focally it is granular, hemorrhagic and contains cautery artifact. The gallbladder contains pink hemorrhagic bile and multiple mulberry, green-yellow stones measuring in aggregate 2.5 x 2.5 x 0.5 cm and 0.3 to 0.6 cm in greatest dimension. The mucosa is congested and ulcerated. The gallbladder wall measures up to 0.3 cm in thickness. Silk Opener sections from the gallbladder and the cystic duct are submitted in one cassette. / GENNARO:courtney 10/12/2022 TC:2 CPT: 68492
--- NOTE | 2022-10-11 14:49 | PCM.OPRPT ---
Report of Operation Date of Procedure: 10/11/22 Pre-Operative Diagnosis: Acute cholecystitis Post-Operative Diagnosis: Acute cholecystitis Description of Surgical Findings:: Inflamed gallbladder Specimen's removed: Gallbladder Description of Procedure: After obtaining informed consent patient was brought back to the operating room. General anesthesia was induced. The abdomen was prepped and draped in usual sterile fashion. A small midline incision was made superior to the umbilicus and deepened to the level of fascia. The fascia was elevated and incised. Next the peritoneum was elevated and incised in the same fashion. Finger sweep was performed and the Panchal trocar was placed into the abdomen. The balloon was inflated. The abdomen was inflated to 15 mmHg. Next a camera was introduced into the abdomen and the abdomen was inspected. Next under direct visualization three 5-mm ports were placed one subxiphoid and 2 subcostal. Next the gallbladder was elevated and retracted toward the right shoulder. The peritoneum was stripped from the gallbladder. The infundibulum was located and retracted laterally. Next the triangle of Calot was dissected and the cystic duct and cystic artery were identified. Cholangiograms were performed. The Leroy clamp was used to clamp across the infundibulum and the catheter needle was inserted into the gallbladder. Under fluoroscopy contrast was instilled into the gallbladder and the common duct, cystic duct as well as proximal hepatic ducts were identified. There was good filling of the duodenum. There were no filling defects noted in the common bile duct. The clamp was removed as well as the needle and the infundibulum was grasped once more. Three hemolock clips were placed across the cystic duct. The cystic duct was then divided leaving 2 clips on the stump. The cystic artery was clipped and divided in the same fashion. The hook cautery was then used to take the gallbladder off of the gallbladder bed. Hemostasis was obtained. Gallbladder fossa was irrigated and no active bleeding or bile leakage was noted. Next the camera was introduced in the subxiphoid port. An Endopouch bag was placed through the umbilical port and the gallbladder was placed into it. The gallbladder was then removed through the umbilical incision. The camera was then reinserted through the umbilical port. The gallbladder fossa was inspected once more and noted to be hemostatic with no leaking bile. The abdomen was suctioned dry. The 5 mm ports were removed under direct visualization. The umbilical port was then removed and the air was removed from the abdomen. Next using an 0 Vicryl suture the umbilical fascia was closed in a [id number] fashion. The umbilical port site was irrigated local anesthetic was administered to all the incisions. All the incisions were closed with interrupted subcuticular 4-0 Monocryl sutures followed by Steri-Strips and dressings. The patient was awoken and taken to PACU in stable condition. Admit VTE Documentation VTE Mechan Device Prophylaxis: SCD's
--- NOTE | 2022-10-11 14:51 | DS.PCM_ITS ---
Providers Date of Admission: 10/09/22 Primary Care Physician: Dr. Carlton Melton MD Reason For Visit: ACUTE CHOLECYSTITS Diagnosis Discharge Diagnosis (1) Acute cholecystitis: Status: Acute Code(s): K81.0 - Acute cholecystitis Plan: White count has improved on antibiotics. Plan for laparoscopic cholecystectomy this afternoon. Surgery was once again discussed with her and she had no further questions. Jovanny Almanza MD Pager: [facility] [address] [place] [address], [address] [place] [address] Office: Medications at Discharge Home Medications acetaminophen 325 mg tablet 650 mg PO Q4H PRN PRN Pain 1-10/Fever #0 tabs 10/11/22 oxycodone 5 mg tablet 5 - 10 mg PO Q4H PRN PRN Pain Score 4-10/10 5 days #30 tabs 10/11/22 Hospital Course Operations cholecystecomy Procedures None Summary of Care Provided Hospital Course: Patient presented to the emergency room with acute cholecystitis. She was admitted and taken for surgery on Tuesday. Surgery went well and she did have acute cholecystitis. Her cholangiogram showed a stone in the neck of the gallbladder but her cholangiograms were otherwise normal. She will be disch arged home once tolerating a diet. Weight / BMI Weight Weight: 324 lb 8.327 oz Body Mass Index (BMI) 47.9 ABG / Lab / Microbiology Data Result Diagrams: 10/11/22 05:25 10/11/22 05:25 Laboratory: Laboratory Results - last 24 hr 10/11/22 05:25: WBC 9.1, RBC 4.58, Hgb 12.5, Hct 39.3, MCV 85.8, MCH 27.3, MCHC 31.8 L, RDW Std Deviation 43.7, RDW Coeff of Luisa 14.1, Plt Count 228, MPV 11.3, Immature Gran % (Auto) 0.300, Neut % (Auto) 55.6, Lymph % (Auto) 32.8, [place] % (Auto) 8.1, Eos % (Auto) 2.8, Baso % (Auto) 0.4, Absolute Neuts (auto) 5.1, Absolute Lymphs (auto) 2.98, Nucleated RBC % 0 10/11/22 05:25: Sodium 143, Potassium 3.4 L, Chloride 110 H, Carbon Dioxide 26.0, Anion Gap 7, BUN 6 L, Creatinine 0.72, Estim Creat Clear Calc 121.57, Est GFR (MDRD) Af Amer 124, Est GFR (MDRD) Non-Af 103, BUN/Creatinine Ratio 8.4 L, Glucose 96, Calcium 8.0 L, Total Bilirubin 0.60, AST 21, ALT 46, Alkaline Phosphatase 62, Total Protein 6.2 L, Albumin 2.9 L, Globulin 3.3, Albumin/Globulin Ratio 0.9 D/C Instructions Discharge Diet: Light diet - advance as tolerated Discharge Activity: May Drive (for 2-3 days or while taking narcotic pain medications.) and - (Do not drive, work heavy equipment or sign legal documents for 24 hours.) May shower in (days): 1 Lifting Restrictions: 20 lbs for 2 weeks Additional Activity Instructions: Pain medication may cause nausea. You should typically eat light foods as you take your pain medications. Pain medication may cause constipation. If this is a problem for you, please discuss with your doctor. Call your doctor if your incision/area has: Continuous Slow Oozing, Sudden Incr eased Bleeding, Increased Pain/ Swelling, Increased Redness and Foul Smelling Discharge Call your doctor if you observe: Fever of 101 or Higher Suture Line Care: Avoid Pulling/Pushing and Avoid Pinching/Bending Remove Dressing in: 2 days Additional Dressing/Incision Instructions: Leave operative bandaids on for 2 days. When you remove dressing, leave Steri-Strips on until your follow-up appointment, or until the Steri-Strips fall off on their own. Please Follow Up With: Jovanny Almanza MD When: Please call to schedule 2 week follow up appointment at [phone] Meaningful Use Info Meaningful Use Diagnoses (Choose all that apply): None applicable Discharge Plan Admission Admit Date/Time: 10/09/22 19:22 Attending Provider: Jovanny Almanza Primary Care Provider: Carlton Melton Discharge Orders/Prescriptions Prescriptions: New acetaminophen 325 mg Tablet 650 mg PO Q4H PRN PRN (Reason: Pain 1-10/Fever) Qty: 0 0RF oxycodone 5 mg Tablet 5 - 10 mg PO Q4H PRN PRN (Reason: Pain Score 4-10/10) 5 Days Qty: 30 0RF Referrals / Follow Up: Carlton Melton MD [Primary Care Provider] - Disposition Disposition (needs filled in before D/C Order can be placed): Home, Self Care
[2022-10-11] MEDS: Ketorolac 15 MG/ML Vial IV (16:31)
--- NOTE | 2022-10-11 16:45 | CASEMGMT ---
DEEPALI CANALES DC Planning Assessment: Face to Face with patient for initial transition planning/care coordination assessment. DEEPALI CANALES introduced self and role at [facility], pt voices understanding. Pt alert and agreeable to participating in assessment with S.O. at bedside. Pt states she is independent at baseline and denies any use of DME prior to admission. Pt plans to return home at discharge with the support of her S.O. Pt denies any concerns or discharge needs at this time. Eduardo Mauricio RN CM
[2022-10-11] MEDS: oxyCODONE 5 MG Tablet PO (18:01)
== END 2022-10-11 18:31 | disposition home or self-care (01) | DRG 263 ==
LOC: ED 17:32 → MS3 19:35
PROVIDERS: Admitting Provider Surgery; Emergency Provider Emergency Medicine; PCP Family Medicine; Visit Provider Surgery
PROC: 0FT44ZZ Resection of Gallbladder, Percutaneous Endoscopic Approach (ICD-10-PCS; CPT 47610; principal; 2022-10-11 14:10)
DX: K80.00 Calculus of gallbladder with acute cholecystitis without obstruction (principal); E66.01 Morbid (severe) obesity due to excess calories; Z68.42 Body mass index [BMI] 45.0-49.9, adult
CPT/HCPCS: 36415; 74300; 76000; 76705; 80053; 81001; 83690; 85025; 88304; 93005; 99284; J7030; J7050; J7120; A4216; J2405